=== PATIENT | male | born 1970 | race Hispanic/Latino ===

== ENCOUNTER 2022-03-31 20:39 | Emergency (ER) | payer SELFPAY ==
[2022-03-31] MEDS ORDERED: ACETAMINOPHEN 160 MG/5 ML UCUP ONE (23:57)
[2022-03-31] MEDS ORDERED: IBUPROFEN 400 MG TAB ONE (23:57)
[2022-03-31] MEDS ORDERED: ACETAMINOPHEN 500 MG TAB ONE (23:58)
--- NOTE | 2022-04-01 00:22 | ER ---
Nurse's Notes [facility] Name: Myron Dwyer Age: 51 yrs Sex: Male : 1970 Arrival Date: 03/31/2022 Time: 20:44 Bed 9 Private MD: Diagnosis: Pain in right foot Presentation: 03/31 21:38 Chief complaint: Patient states: Pt reports that he woke up Thursday morning with pain in kb3 the dorsal aspect of his right foot and in his right great toe. Coronavirus screen: Vaccine status: Patient reports receiving the 2nd dose of the covid vaccine. Client denies travel out of the [place] in the last 14 days. Ebola Screen: Patient negative for fever greater than or equal to 101.5 degrees Fahrenheit, and additional compatible Ebola Virus Disease symptoms Patient denies exposure to infectious person. Patient denies travel to an Ebola-affected area in the 21 days before illness onset. No symptoms or risks identified at this time. Initial Sepsis Screen: Does the patient meet any 2 criteria? No. Patient's initial sepsis screen is negative. Does the patient have a suspected source of infection? No. Patient's initial sepsis screen is negative. Risk Assessment: Do you want to hurt yourself or someone else?. Onset of symptoms was March 29, 2022. 21:38 Method Of Arrival: Ambulatory 3 21:38 Acuity: WERNER 3 kb3 Triage Assessment: 21:42 General: Appears in no apparent distress. Behavior is calm. Pain: Complains of pain in kb3 dorsum of right foot. Historical: - Allergies: 21:42 No Known Allergies; kb3 - Immunization history:: Adult Immunizations up to date, Client reports receiving the 2nd dose of the Covid vaccine, Last tetanus immunization: up to date. - Social history:: Smoking status: Patient denies any tobacco usage or history of. Screenin/23 00:37 Abuse screen: Denies threats or abuse. Denies injuries from another. Nutritional tw5 screening: No deficits noted. Tuberculosis screening: No symptoms or risk factors identified. Fall Risk None identified. Assessment: 00:37 General: Appears in no apparent distress. Behavior is calm, cooperative. tw5 Vital Signs: 03/31 21:38 BP 165 / 94; Pulse 80; Resp 18; Temp 98.7; Pulse Ox 99% ; Weight 111.58 kg; Height 5 kb3 ft. 5 in. (165.10 cm); Pain 9/10; 21:38 Body Mass Index 40.94 (111.58 kg, 165.10 cm) kb3 ED Course: 20:44 Patient arrived in ED. jj6 21:42 Triage completed. kb3 21:42 Arm band placed on right wrist. kb3 22:12 Marco Herzog PA is PHCP. cp 22:12 Marco Vargas MD is Attending Physician. cp 23:01 US Extremity Venous Unilateral Ltd In Process Unspecified. EDMS 23:21 XRAY Foot RIGHT 3 View In Process Unspecified. EDMS 23:46 Farideh Nails, GAMAL is Primary Nurse. [facility] 04/01 00:29 Priya Corley is Primary Nurse. tw5 00:37 Patient has correct armband on for positive identification. Bed in low position. Call tw5 light in reach. Door closed. 00:37 No provider procedures requiring assistance completed. Patient did not have IV access tw5 during this emergency room visit. Administered Medications: 03/31 23:53 Drug: Ibuprofen 800 mg Route: PO; [facility] 04/01 00:37 Follow up: Response: No adverse reaction tw5 03/31 23:53 Drug: Tylenol 1000 mg Route: PO; [facility] 04/01 00:37 Follow up: Response: No adverse reaction tw5 Medication: 00:37 VIS not applicable for this client. tw5 Outcome: 00:21 Discharge ordered by MD. cp 00:37 Discharged to home ambulatory, with crutches, with family. tw5 00:37 Condition: good 00:37 Discharge instructions given to patient, Instructed on discharge instructions, follow up and referral plans. crutch walking, Demonstrated understanding of instructions, follow-up care, medications, crutch walking, Prescriptions given X 1. 00:38 Patient left the ED. tw5 Signatures: Dispatcher [employer] EDMN Marco Herzog PA PA cp Priya Corley tw5 Praveena Perry jj6 Farideh Nails, RN RN 3 Toya Ramos RN RN 3
--- NOTE | 2022-04-01 00:22 | EDPHYS ---
Physician Documentation [facility] Name: Myron Dwyer Age: 51 yrs Sex: Male : 1970 Arrival Date: 03/31/2022 Time: 20:44 Bed 9 Private MD: ED Physician Marco Vargas HPI: 03/31 22:35 This 51 yrs old Male presents to ER via Ambulatory with complaints of POSSIBLE cp GOUT, Foot Pain. 22:35 The patient presents with pain, that is acute. cp 22:35 The complaints affect the right foot. Context: resulted from an unknown cause, the cp patient can fully bear weight, the patient is able to ambulate, with moderate difficulty. Onset: The symptoms/episode began/occurred yesterday. Associated signs and symptoms: Pertinent negatives: fever, numbness, warmth, weakness. Severity of symptoms: in the emergency department the symptoms are unchanged, despite home interventions. Historical: - Allergies: 21:42 No Known Allergies; kb3 - Immunization history:: Adult Immunizations up to date, Client reports receiving the 2nd dose of the Covid vaccine, Last tetanus immunization: up to date. - Social history:: Smoking status: Patient denies any tobacco usage or history of. ROS: 22:40 Constitutional: Negative for body aches, chills, fever, poor PO intake. cp 22:40 Cardiovascular: Negative for chest pain, edema, palpitations. cp 22:40 Respiratory: Negative for cough, shortness of breath. 22:40 Abdomen/GI: Negative for abdominal pain, nausea, vomiting, and diarrhea. 22:40 MS/extremity: Positive for pain, of the dorsum of right foot, Negative for injury or acute deformity, paresthesias, warmth. 22:40 Skin: Negative for rash. 22:40 All other systems are negative. Exam: 22:45 Constitutional: The patient appears in no acute distress, alert, awake, cp non-diaphoretic, non-toxic, well developed, well nourished, obese. 22:45 Head/Face: Normocephalic, atraumatic. cp 22:45 Cardiovascular: Rate: normal. 22:45 Respiratory: the patient does not display signs of respiratory distress, Respirations: normal, no use of accessory muscles, no retractions, labored breathing, is not present. 22:45 Back: pain, is absent, ROM is normal. 22:45 Musculoskeletal/extremity: Extremities: grossly normal except: noted in the dorsum of right foot: pain, swelling, tenderness, overlying skin intact, There is no evidence of erythema, Pulses: noted to be 2+ in the right dorsalis pedis artery, the right foot Sensation intact. Vital Signs: 21:38 BP 165 / 94; Pulse 80; Resp 18; Temp 98.7; Pulse Ox 99% ; Weight 111.58 kg; Height 5 kb3 ft. 5 in. (165.10 cm); Pain 9/10; 21:38 Body Mass Index 40.94 (111.58 kg, 165.10 cm) kb3 MDM: 23:00 Differential diagnosis: fracture, sprain, arthritis, gout, cellulitis. cp 23:14 Patient medically screened. cp 04/01 00:20 Data reviewed: vital signs, nurses notes, radiologic studies, plain films, ultrasound. 00:20 Counseling: I had a detailed discussion with the patient and/or guardian regarding: the cp historical points, exam findings, and any diagnostic results supporting the discharge/admit diagnosis, radiology results, the need for outpatient follow up, a family practitioner, to return to the emergency department if symptoms worsen or persist or if there are any questions or concerns that arise at home. Response to treatment: the patient's symptoms have mildly improved after treatment, and as a result, I will discharge patient. 03/31 22:32 Order name: XRAY Foot RIGHT 3 View cp 03/31 22:32 Order name: US Extremity Venous Unilateral Ltd cp 04/01 00:19 Order name: Bhavin Wrap; Complete Time: 00:37 cp 04/01 00:19 Order name: Crutches; Complete Time: 00:37 cp Administered Medications: 03/31 23:53 Drug: Ibuprofen 800 mg Route: PO; [facility] 04/01 00:37 Follow up: Response: No adverse reaction tw5 03/31 23:53 Drug: Tylenol 1000 mg Route: PO; [facility] 04/01 00:37 Follow up: Response: No adverse reaction tw5 Disposition Summary: 04/01/22 00:21 Discharge Ordered Location: Home cp Problem: new cp Symptoms: have improved cp Condition: Stable cp Diagnosis - Pain in right foot cp Followup: cp - With: Private Physician - When: 2 - 3 days - Reason: Recheck today's complaints Discharge Instructions: - Discharge Summary Sheet cp - Foot Pain cp Forms: - Medication Reconciliation Form cp - Thank You Letter cp - Antibiotic Education cp - Prescription Opioid Use cp Prescriptions: - Ibuprofen 800 mg Oral Tablet - take 1 tablet by ORAL route every 8 hours As needed take with food; 30 tablet; cp Refills: 0, Product Selection Permitted Signatures: Dispatcher [employer] EDMS Marco Herzog PA PA cp Hall, Erin, RN RN eh3 Toya Ramos RN RN kb3 Priya Corley tw5
[2022-04-01 03:10] VITALS: BP 165/94; TEMP 98.7; O2SAT 99
--- NOTE | 2022-04-01 11:37 | RAD REPORT ---
EXAM DESCRIPTION: RAD - Foot Right 3 View - 03/31/2022 11:19 pm CLINICAL HISTORY: The patient is 51 years old and is Male; PAIN TECHNIQUE: Frontal, lateral and oblique views of the right foot. COMPARISON: No relevant prior studies available. FINDINGS: BONES/JOINTS: Spurring along the inferior aspect of the calcaneus and calcaneal body is noted. The bone mineralization and contour is otherwise unremarkable. No acute fracture. No dislo cation. SOFT TISSUES: Soft tissue swelling of the dorsum of the midfoot is present. No radiopaque forei gn body. IMPRESSION: Soft tissue swelling of the dorsum of the midfoot is present. No underlying acute bony abnormality. Electronically signed by: Ira Cortez MD 03/31/2022 11:37 PM CDT Due to temporary technical issues with the PACS/Fluency reporting system, reports are being signed by the in house radiologists without review as a courtesy to insure prompt reporting. The interpreting radiologist is fully responsible for the content of the report
--- NOTE | 2022-04-01 12:38 | RAD REPORT ---
EXAM DESCRIPTION: US - Extremity Venous Uni Ltd - 03/31/2022 11:49 pm CLINICAL HISTORY: The patient is 51 years old and is Male; PAIN Extremity Venous Uni Ltd TECHNIQUE: Real-time duplex ultrasound scan of the right lower extremity veins integrating B-mode tw o-dimensional vascular structure, Doppler spectral analysis, color flow Doppler imaging and compressi on. COMPARISON: No relevant prior studies available. FINDINGS: DEEP VEINS: Unremarkable. No DVT in the visualized common femoral, femoral, proximal d eep femoral or popliteal veins. The veins demonstrate normal color flow, are normally compressible, with normal phasic flow and/or augmentation response. SUPERFICIAL VEINS: Unremarkable. No thrombus in the visualized great saphenous vein. SOFT TISSUES: No acute findings. No popliteal cyst. IMPRESSION: Normal right lower extremity duplex venous ultrasound. Electronically signed by: Ira Cortez MD 03/31/2022 11:35 PM CDT Due to temporary technical issues with the PACS/Fluency reporting system, reports are being signed by the in house radiologists without review as a courtesy to insure prompt reporting. The interpreting radiologist is fully responsible for the content of the report
== END 2022-04-01 00:38 | disposition home or self-care (01) ==
LOC: ER 20:39
DX: M79.671 Pain in right foot (principal)
CPT/HCPCS: 93971; 99284

== ENCOUNTER 2022-07-20 15:13 | Emergency (ER) | payer SELFPAY ==
--- OUTSIDE RECORDS SUMMARY | 2022-07-20 15:17 | XMS REPORT | Continuity of Care Document ---
:1970 Author Organization [facility] t Address [address] [place] [address] [address]. Pratt [address] [place] [address] Care Team Providers Name Role Phone Marina Atwood Primary Care Physician [phone] Problems This patient has no known problems. Allergies, Adverse Reactions, Alerts This patient has no known allergies or adverse reactions. Medications Ordered Filled Start Stop Current Ordering Indication Dosage Frequency Signature Comments Components Source Medication Medication Date Date Medication? Clinician (SIG) Name Name TAKE 2021-08 No 10 TABLET 1-08 DAILY. 00:00: 00 Dose 2021-0 No Unknown 9-30 00:00: 00 Dose 2021-0 No Unknown 9-30 00:00: 00 Dose 2021-0 No Unknown 9-30 00:00: 00 TAKE 2021-0 No 800 TABLET 3 7-07 TIMES DAILY 00:00: WITH FOOD 00 NEEDED. TAKE 1 2021-0 No TABLET 3 7-07 TIMES DAILY 00:00: WITH FOOD 00 NEEDED. TAKE 1 2021-0 No TABLET 3 7-07 TIMES DAILY 00:00: WITH FOOD 00 NEEDED. TAKE 1 2021-0 No TABLET 3 7-07 TIMES DAILY 00:00: WITH FOOD 00 NEEDED. Ciprodex 2017- No 1% 0.3 %-0.1 % 1-20 ear 00:00: drops,suspe 00 nsion Ciprodex 2017- No 1% 0.3 %-0.1 % 1-20 ear 00:00: drops,suspe 00 nsion Ciprodex 2017- No 1% 0.3 %-0.1 % 1-20 ear 00:00: drops,suspe 00 nsion Ciprodex 2017- No 1% 0.3 %-0.1 % 1-20 ear 00:00: drops,suspe 00 nsion metronidazo 2018-1 No 1mg le 500 mg 1-14 tablet 00:00: 00 pantoprazol 2018-1 No 1mg e 40 mg 1-14 tablet,charlette 00:00: yed release 00 clarithromy 2018-1 No 1mg luis 500 mg 1-14 tablet 00:00: 00 Vitamin D2 2018-1 No 1unit 50,000 unit 1-14 capsule 00:00: 00 metronidazo 2018-1 No 1mg le 500 mg 1-14 tablet 00:00: 00 pantoprazol 2018-1 No 1mg e 40 mg 1-14 tablet,charlette 00:00: yed release 00 clarithromy 2018-1 No 1mg luis 500 mg 1-14 tablet 00:00: 00 Vitamin D2 2018-1 No 1unit 50,000 unit 1-14 capsule 00:00: 00 metronidazo 2018-1 No 1mg le 500 mg 1-14 tablet 00:00: 00 pantoprazol 2018-1 No 1mg e 40 mg 1-14 tablet,charlette 00:00: yed release 00 clarithromy 2018-1 No 1mg luis 500 mg 1-14 tablet 00:00: 00 Vitamin D2 2018-1 No 1unit 50,000 unit 1-14 capsule 00:00: 00 metronidazo 2018-1 No 1mg le 500 mg 1-14 tablet 00:00: 00 pantoprazol 2018-1 No 1mg e 40 mg 1-14 tablet,charlette 00:00: yed release 00 clarithromy 2018-1 No 1mg luis 500 mg 1-14 tablet 00:00: 00 Vitamin D2 2018-1 No 1unit 50,000 unit 1-14 capsule 00:00: 00 terbinafine 2015-0 No 1% HCl 1 % 3-12 topical 00:00: cream amoxicillin 2015-0 No 1mg 500 mg 3-12 tablet 00:00: 00 terbinafine 2015-0 No 1% HCl 1 % 3-12 topical 00:00: cream amoxicillin 2015-0 No 1mg 500 mg 3-12 tablet 00:00: 00 terbinafine 2015-0 No 1% HCl 1 % 3-12 topical 00:00: cream amoxicillin 2014-0 No 1mg 500 mg 3-12 tablet 00:00: 00 terbinafine 2015-0 No 1% HCl 1 % 12 topical 00:00: cream 00 amoxicillin 2015-0 No 1mg 500 mg -12 tablet 00:00: 00 Vital Signs Vital Name Observation Time Observation Value Comments Source BP Systolic 2022-06-17 17:02:00 126 mm[Hg] BP Diastolic 2022-06-17 17:02:00 81 mm[Hg] Weight Measured 2022-06-17 17:02:00 237.80 pounds Height Measured 2022-06-17 17:02:00 64.50 inches Body Temperature 2022-06-17 17:02:00 97.50 degrees Heart Rate 2022-06-17 17:02:00 64.00 /min Respiratory Rate 2022-06-17 17:02:00 BP Systolic 2022-05-16 16:24:00 136 mm[Hg] BP Diastolic 2022-05-16 16:24:00 83 mm[Hg] Weight Measured 2022-05-16 16:24:00 244.20 pounds Height Measured 2022-05-16 16:24:00 64.50 inches Body Temperature 2022-05-16 16:24:00 98.30 degrees Heart Rate 2022-05-16 16:24:00 62.00 /min Respiratory Rate 2022-05-16 16:24:00 18.00 /min BP Systolic 2022-05-10 12:01:00 158 mm[Hg] BP Diastolic 2022-05-10 12:01:00 84 mm[Hg] Weight Measured 2022-05-10 12:01:00 244.00 pounds Height Measured 2022-05-10 12:01:00 64.50 inches Body Temperature 2022-05-10 12:01:00 98.30 degrees Heart Rate 2022-05-10 12:01:00 73.00 /min Respiratory Rate 2022-05-10 12:01:00 BP Systolic 2022-02-13 16:33:00 138 mm[Hg] BP Diastolic 2022-02-13 16:33:00 89 mm[Hg] Weight Measured 2022-02-13 16:33:00 243.00 pounds Height Measured 2022-02-13 16:33:00 64.50 inches Body Temperature 2022-02-13 16:33:00 98.30 degrees Heart Rate 2022-02-13 16:33:00 71.00 /min Respiratory Rate 2022-02-13 16:33:00 25.00 /min BP Systolic 2018-07-06 13:58:00 136 mm[Hg] BP Diastolic 2018-07-06 13:58:00 84 mm[Hg] Weight Measured 2018-07-06 13:58:00 239.20 pounds Height Measured 2018-07-06 13:58:00 64.50 inches Body Temperature 2018-07-06 13:58:00 98.30 degrees Heart Rate 2018-07-06 13:58:00 66.00 /min Respiratory Rate 2018-07-06 13:58:00 16.00 /min BP Systolic 2018-06-22 08:37:00 127 mm[Hg] BP Diastolic 2018-06-22 08:37:00 70 mm[Hg] Weight Measured 2018-06-22 08:37:00 236.20 pounds Height Measured 2018-06-22 08:37:00 64.50 inches Body Temperature 2018-06-22 08:37:00 98.00 degrees Heart Rate 2018-06-22 08:37:00 66.00 /min Respiratory Rate 2018-06-22 08:37:00 18.00 /min BP Systolic 2014-10-19 12:32:00 BP Diastolic 2014-10-19 12:32:00 Weight Measured 2014-10-19 12:32:00 Height Measured 2014-10-19 12:32:00 Body Temperature 2014-10-19 12:32:00 Heart Rate 2014-10-19 12:32:00 Respiratory Rate 2014-10-19 12:32:00 BP Systolic 2014-10-19 10:56:00 BP Diastolic 2014-10-19 10:56:00 Weight Measured 2014-10-19 10:56:00 Height Measured 2014-10-19 10:56:00 Body Temperature 2014-10-19 10:56:00 Heart Rate 2014-10-19 10:56:00 Respiratory Rate 2014-10-19 10:56:00 BP Systolic 2014-10-19 10:45:00 132 mm[Hg] BP Diastolic 2014-10-19 10:45:00 85 mm[Hg] Weight Measured 2014-10-19 10:45:00 223.20 pounds Height Measured 2014-10-19 10:45:00 64.50 inches Body Temperature 2014-10-19 10:45:00 98.00 degrees Heart Rate 2014-10-19 10:45:00 65.00 /min Respiratory Rate 2014-10-19 10:45:00 12.00 /min BP Systolic 2014-10-19 10:32:00 132 mm[Hg] BP Diastolic 2014-10-19 10:32:00 85 mm[Hg] Weight Measured 2014-10-19 10:32:00 223.20 pounds Height Measured 2014-10-19 10:32:00 64.50 inches Body Temperature 2014-10-19 10:32:00 98.00 degrees Heart Rate 2014-10-19 10:32:00 65.00 /min Respiratory Rate 2014-10-19 10:32:00 12.00 /min Procedures This patient has no known procedures. Plan of Care Planned Activity Planned Date Details Comments Source Goal Plan of Care Note [code = 15028-1] Goal Plan of Care Note [code = 97672-4] Goal Plan of Care Note [code = 84404-1] Goal Plan of Care Note [code = 37126-5] Goal Plan of Care Note [code = 89160-2] Goal Plan of Care Note [code = 08934-5] Goal Plan of Care Note [code = 92633-3] Goal Plan of Care Note [code = 76644-8] Goal Plan of Care Note [code = 48539-9] Goal Plan of Care Note [code = 46843-4] Goal Plan of Care Note [code = 54151-7] Goal Plan of Care Note [code = 11823-8] Goal Plan of Care Note [code = 05571-3] Goal Plan of Care Note [code = 55359-6] Goal Plan of Care Note [code = 26499-8] Goal Plan of Care Note [code = 06415-9] Goal Plan of Care Note [code = 25610-5] Goal Plan of Care Note [code = 51606-1] Goal Plan of Care Note [code = 22844-5] Goal Plan of Care Note [code = 53833-0] Goal Plan of Care Note [code = 03576-8] Goal Plan of Care Note [code = 10513-6] Goal Plan of Care Note [code = 01708-8] Goal Plan of Care Note [code = 87099-7] Goal Plan of Care Note [code = 88371-9] Goal Plan of Care Note [code = 24386-1] Goal Plan of Care Note [code = 88099-4] Goal Plan of Care Note [code = 44702-6] Goal Plan of Care Note [code = 95863-0] Goal Plan of Care Note [code = 97415-4] Goal Plan of Care Note [code = 58797-7] Goal Plan of Care Note [code = 55733-5] Goal Plan of Care Note [code = 44049-0] Goal Plan of Care Note [code = 81790-0] Goal Plan of Care Note [code = 71116-4] Goal Plan of Care Note [code = 47038-1] Goal Plan of Care Note [code = 99995-1] Goal Plan of Care Note [code = 13613-7] Goal Plan of Care Note [code = 17886-9] Goal Plan of Care Note [code = 46584-1] Goal Plan of Care Note [code = 22951-2] Goal Plan of Care Note [code = 36889-4] Goal Plan of Care Note [code = 96311-6] Goal Plan of Care Note [code = 44128-3] Goal Plan of Care Note [code = 59932-8] Goal Plan of Care Note [code = 69521-8] Goal Plan of Care Note [code = 50241-8] Goal Plan of Care Note [code = 54979-8] Goal Plan of Care Note [code = 34232-3] Goal Plan of Care Note [code = 47997-4] Goal Plan of Care Note [code = 95016-5] Goal Plan of Care Note [code = 66273-5] Goal Plan of Care Note [code = 07287-3] Goal Plan of Care Note [code = 72902-3] Goal Plan of Care Note [code = 69933-6] Goal Plan of Care Note [code = 69854-9] Goal Plan of Care Note [code = 35419-7] Goal Plan of Care Note [code = 74768-6] Goal Plan of Care Note [code = 84020-5] Encounters Start End Encounter Admission Attending Care Care Encounter Source Date/Time Date/Time Type Type Clinicians Facility Department ID 2022-06-19 2022-06-19 Outpatient [facility] 15:01:56 15:01:56 1110 F Singh 2022-06-17 2022-06-17 Outpatient [facility] 16:59:28 16:59:28 1108 F Singh 2022-06-17 2022-06-17 Outpatient [id number] 00:00:00 00:00:00 Visit q193-01a8 230-47a3-8 -3pc1-8g5 ea7-3h9712 [id number] a4a70c 2022-05-16 2022-05-16 Outpatient [facility] 16:10:30 16:10:30 1007 F Singh 2022-05-16 2022-05-16 Outpatient [id number]- [id number] 00:00:00 00:00:00 Visit ccd2-4556 cd2-4556-9 -985a-e7f [id number] 2022-05-10 2022-05-10 Outpatient [facility] 11:48:02 11:48:02 1001 F Singh 2022-05-10 2022-05-10 Outpatient [id number]- [id number] 00:00:00 00:00:00 Visit 6922-4dbc 922-4dbc-9 -937b-735 37b-735b06 [id number] e51fcd 2022-02-13 2022-02-13 Outpatient [id number]-[id number] 00:00:00 00:00:00 Visit 19g9-7m84 2o6-7v94-g -f14x-32z 02b-91a080 [id number] 182afe Results Test Description Test Time Test Comments Results Result Comments Source SARS-CoV-2 (COVID-19) by RT-PCR (HIGH RISK) 2020-08-01 00:00 :00 Test Item Value Reference Range Interpretation Comme nts SARS-CoV-2 INTERPRETATION (test code = 45477) NEGATIVE SOURCE (test code = 07851) NOT SPECIFIED SARS-CoV-2 (COVID-19) by RT-PCR (HIGH RISK)2020-08-01 00:00:00 Test Item Value Reference Range Interpretation Comments SARS-CoV-2 INTERPRETATION (test NEGATIVE code = 27022) SOURCE (test code = 93126) NOT SPECIFIED SARS-CoV-2 (COVID-19) by RT-PCR (HIGH RISK)2020-08-01 00:00:00 Test Item Value Reference Range Interpretation Comments SARS-CoV-2 INTERPRETATION (test NEGATIVE code = 00823) SOURCE (test code = 14464) NOT SPECIFIED SARS-CoV-2 (COVID-19) by RT-PCR (HIGH RISK)2020-08-01 00:00:00 Test Item Value Reference Range Interpretation Comments SARS-CoV-2 INTERPRETATION (test NEGATIVE code = 30933) SOURCE (test code = 44746) NOT SPECIFIED SARS-CoV-2 (COVID-19) by RT-PCR (HIGH RISK)2020-08-01 00:00:00 Test Item Value Reference Range Interpretation Comments SARS-CoV-2 INTERPRETATION (test NEGATIVE code = 27977) SOURCE (test code = 87909) NOT SPECIFIED SARS-CoV-2 (COVID-19) by RT-PCR (HIGH RISK)2020-08-01 00:00:00 Test Item Value Reference Range Interpretation Comments SARS-CoV-2 INTERPRETATION (test NEGATIVE code = 01195) SOURCE (test code = 03988) NOT SPECIFIED SARS-CoV-2 (COVID-19) by RT-PCR (HIGH RISK)2020-08-01 00:00:00 Test Item Value Reference Range Interpretation Comments SARS-CoV-2 INTERPRETATION (test NEGATIVE code = 70992) SOURCE (test code = 46755) NOT SPECIFIED LIPID [id number] 00:00:00 Test Item Value Reference Range Interpretation Comments CHOLESTEROL (test code = 2210) 204 MG/DL TRIGLYCERIDES (test code = 2232) 370 MG/DL HDL CHOLESTEROL (test code = 2220) 36 MG/DL CALC LDL CHOL (test code = 2237) 94 MG/DL RISK RATIO LDL/HDL (test code = 2.61 RATIO 2238) CBC W/AUTO [id number] 00:00:00 Test Item Value Reference Range Interpretation Comments WBC (test code = 1001) 6.2 K/UL RBC (test code = 1002) 5.31 M/UL HEMOGLOBIN (test code = 1003) 14.7 G/DL HEMATOCRIT (test code = 1004) 41.6 % MCV (test code = 1005) 78.3 fL MCH (test code = 1006) 27.7 PG MCHC (test code = 1007) 35.3 G/DL RDW (test code = 1038) 13.2 % NEUTROPHILS (test code = 1008) 69.0 % LYMPHOCYTES (test code = 1010) 23.1 % MONOCYTES (test code = 1011) 5.8 % EOSINOPHILS (test code = 1012) 1.8 % BASOPHILS (test code = 1013) 0.3 % PLATELET COUNT (test code = 1015) 119 K/UL CBC W/AUTO [id number] 00:00:00 Test Item Value Reference Range Interpretation Comments WBC (test code = 1001) 6.2 K/UL RBC (test code = 1002) 5.31 M/UL HEMOGLOBIN (test code = 1003) 14.7 G/DL HEMATOCRIT (test code = 1004) 41.6 % MCV (test code = 1005) 78.3 fL MCH (test code = 1006) 27.7 PG MCHC (test code = 1007) 35.3 G/DL RDW (test code = 1038) 13.2 % NEUTROPHILS (test code = 1008) 69.0 % LYMPHOCYTES (test code = 1010) 23.1 % MONOCYTES (test code = 1011) 5.8 % EOSINOPHILS (test code = 1012) 1.8 % BASOPHILS (test code = 1013) 0.3 % PLATELET COUNT (test code = 1015) 119 K/UL CBC W/AUTO [id number] 00:00:00 Test Item Value Reference Range Interpretation Comments WBC (test code = 1001) 6.2 K/UL RBC (test code = 1002) 5.31 M/UL HEMOGLOBIN (test code = 1003) 14.7 G/DL HEMATOCRIT (test code = 1004) 41.6 % MCV (test code = 1005) 78.3 fL MCH (test code = 1006) 27.7 PG MCHC (test code = 1007) 35.3 G/DL RDW (test code = 1038) 13.2 % NEUTROPHILS (test code = 1008) 69.0 % LYMPHOCYTES (test code = 1010) 23.1 % MONOCYTES (test code = 1011) 5.8 % EOSINOPHILS (test code = 1012) 1.8 % BASOPHILS (test code = 1013) 0.3 % PLATELET COUNT (test code = 1015) 119 K/UL HEMOGLOBIN [id number] 00:00:00 Test Item Value Reference Range Interpretation Comments HEMOGLOBIN A1c (test code = 92340) 5.6 % HEMOGLOBIN [id number] 00:00:00 Test Item Value Reference Range Interpretation Comments HEMOGLOBIN A1c (test code = 65851) 5.6 % HEMOGLOBIN [id number] 00:00:00 Test Item Value Reference Range Interpretation Comments HEMOGLOBIN A1c (test code = 02741) 5.6 % HEMOGLOBIN [id number] 00:00:00 Test Item Value Reference Range Interpretation Comments HEMOGLOBIN A1c (test code = 60849) 5.6 % [id number] 00:00:00 Test Item Value Reference Range Interpretation Comments TSH, THIRD GENERATION (test code 2.290 UIU/ML = 2821) [id number] 00:00:00 Test Item Value Reference Range Interpretation Comments TSH, THIRD GENERATION (test code 2.290 UIU/ML = 2821) [id number] 00:00:00 Test Item Value Reference Range Interpretation Comments TSH, THIRD GENERATION (test code 2.290 UIU/ML = 2821) URIC [id number] 00:00:00 Test Item Value Reference Range Interpretation Comments URIC ACID (test code = 2233) 7.7 MG/DL URIC [id number] 00:00:00 Test Item Value Reference Range Interpretation Comments URIC ACID (test code = 2233) 7.7 MG/DL RHEUMATOID FACTOR, [id number] 00:00:00 Test Item Value Reference Range Interpretation Comments RHEUMATOID FACTOR, QUANT (test code <10 IU/ML = 3502) RHEUMATOID FACTOR, [id number] 00:00:00 Test Item Value Reference Range Interpretation Comments RHEUMATOID FACTOR, QUANT (test code <10 IU/ML = 3502) RHEUMATOID FACTOR, [id number] 00:00:00 Test Item Value Reference Range Interpretation Comments RHEUMATOID FACTOR, QUANT (test code <10 IU/ML = 3502) HEMOGLOBIN [id number] 00:00:00 Test Item Value Reference Range Interpretation Comments HEMOGLOBIN A1c (test code = 43793) 5.6 % VITAMIN D, 25 [id number] 00:00:00 Test Item Value Reference Range Interpretation Comments VITAMIN D, 25 OH (test code = 4958) 21 NG/ML VITAMIN D, 25 [id number] 00:00:00 Test Item Value Reference Range Interpretation Comments VITAMIN D, 25 OH (test code = 4958) 21 NG/ML [id number] 00:00:00 Test Item Value Reference Range Interpretation Comments TSH, THIRD GENERATION (test code 2.290 UIU/ML = 2821) [id number] 00:00:00 Test Item Value Reference Range Interpretation Comments TSH, THIRD GENERATION (test code 2.290 UIU/ML = 2821) URIC [id number] 00:00:00 Test Item Value Reference Range Interpretation Comments URIC ACID (test code = 2233) 7.7 MG/DL COMPREHENSIVE METABOLIC [id number] 00:00:00 Test Item Value Reference Range Interpretation Comments GLUCOSE (test code = 2217) 86 MG/DL BUN (test code = 2208) 15 MG/DL CREATININE (test code = 2214) 0.83 MG/DL eGFR AMER. (test code 121 ML/MIN/1.73 = 91730) eGFR NON- AMER. (test 105 ML/MIN/1.73 code = 57275) CALC BUN/CREAT (test code = 18 RATIO 2235) SODIUM (test code = 2231) 140 MEQ/L POTASSIUM (test code = 2228) 4.6 MEQ/L CHLORIDE (test code = 2215) 101 MEQ/L CARBON DIOXIDE (test code = 28 MEQ/L 2205) CALCIUM (test code = 2209) 9.9 MG/DL PROTEIN, TOTAL (test code = 7.4 G/DL 2228) ALBUMIN (test code = 2201) 4.4 G/DL CALC GLOBULIN (test code = 3.0 G/DL 2240) CALC A/G RATIO (test code = 1.5 RATIO 2234) BILIRUBIN, TOTAL (test code = 0.3 MG/DL 2206) ALKALINE PHOSPHATASE (test 93 U/L code = 2204) AST (test code = 2218) 19 U/L ALT (test code = 2219) 24 U/L RHEUMATOID FACTOR, [id number] 00:00:00 Test Item Value Reference Range Interpretation Comments RHEUMATOID FACTOR, QUANT (test code <10 IU/ML = 3502) COMPREHENSIVE METABOLIC [id number] 00:00:00 Test Item Value Reference Range Interpretation Comments GLUCOSE (test code = 2217) 86 MG/DL BUN (test code = 2208) 15 MG/DL CREATININE (test code = 2214) 0.83 MG/DL eGFR AMER. (test code 121 ML/MIN/1.73 = 66128) eGFR NON- AMER. (test 105 ML/MIN/1.73 code = 98889) CALC BUN/CREAT (test code = 18 RATIO 2235) SODIUM (test code = 2231) 140 MEQ/L POTASSIUM (test code = 2228) 4.6 MEQ/L CHLORIDE (test code = 2215) 101 MEQ/L CARBON DIOXIDE (test code = 28 MEQ/L 220) CALCIUM (test code = 2209) 9.9 MG/DL PROTEIN, TOTAL (test code = 7.4 G/DL 2228) ALBUMIN (test code = 2201) 4.4 G/DL CALC GLOBULIN (test code = 3.0 G/DL 2240) CALC A/G RATIO (test code = 1.5 RATIO 2234) BILIRUBIN, TOTAL (test code = 0.3 MG/DL 2206) ALKALINE PHOSPHATASE (test 93 U/L code = 2204) AST (test code = 2218) 19 U/L ALT (test code = 2219) 24 U/L LIPID [id number] 00:00:00 Test Item Value Reference Range Interpretation Comments CHOLESTEROL (test code = 2210) 204 MG/DL TRIGLYCERIDES (test code = 2232) 370 MG/DL HDL CHOLESTEROL (test code = 2220) 36 MG/DL CALC LDL CHOL (test code = 2237) 94 MG/DL RISK RATIO LDL/HDL (test code = 2.61 RATIO 2238) LIPID [id number] 00:00:00 Test Item Value Reference Range Interpretation Comments CHOLESTEROL (test code = 2210) 204 MG/DL TRIGLYCERIDES (test code = 2232) 370 MG/DL HDL CHOLESTEROL (test code = 2220) 36 MG/DL CALC LDL CHOL (test code = 2237) 94 MG/DL RISK RATIO LDL/HDL (test code = 2.61 RATIO 2238) CBC W/AUTO [id number] 00:00:00 Test Item Value Reference Range Interpretation Comments WBC (test code = 1001) 6.2 K/UL RBC (test code = 1002) 5.31 M/UL HEMOGLOBIN (test code = 1003) 14.7 G/DL HEMATOCRIT (test code = 1004) 41.6 % MCV (test code = 1005) 78.3 fL MCH (test code = 1006) 27.7 PG MCHC (test code = 1007) 35.3 G/DL RDW (test code = 1038) 13.2 % NEUTROPHILS (test code = 1008) 69.0 % LYMPHOCYTES (test code = 1010) 23.1 % MONOCYTES (test code = 1011) 5.8 % EOSINOPHILS (test code = 1012) 1.8 % BASOPHILS (test code = 1013) 0.3 % PLATELET COUNT (test code = 1015) 119 K/UL CBC W/AUTO [id number] 00:00:00 Test Item Value Reference Range Interpretation Comments WBC (test code = 1001) 6.2 K/UL RBC (test code = 1002) 5.31 M/UL HEMOGLOBIN (test code = 1003) 14.7 G/DL HEMATOCRIT (test code = 1004) 41.6 % MCV (test code = 1005) 78.3 fL MCH (test code = 1006) 27.7 PG MCHC (test code = 1007) 35.3 G/DL RDW (test code = 1038) 13.2 % NEUTROPHILS (test code = 1008) 69.0 % LYMPHOCYTES (test code = 1010) 23.1 % MONOCYTES (test code = 1011) 5.8 % EOSINOPHILS (test code = 1012) 1.8 % BASOPHILS (test code = 1013) 0.3 % PLATELET COUNT (test code = 1015) 119 K/UL CBC W/AUTO [id number] 00:00:00 Test Item Value Reference Range Interpretation Comments WBC (test code = 1001) 6.2 K/UL RBC (test code = 1002) 5.31 M/UL HEMOGLOBIN (test code = 1003) 14.7 G/DL HEMATOCRIT (test code = 1004) 41.6 % MCV (test code = 1005) 78.3 fL MCH (test code = 1006) 27.7 PG MCHC (test code = 1007) 35.3 G/DL RDW (test code = 1038) 13.2 % NEUTROPHILS (test code = 1008) 69.0 % LYMPHOCYTES (test code = 1010) 23.1 % MONOCYTES (test code = 1011) 5.8 % EOSINOPHILS (test code = 1012) 1.8 % BASOPHILS (test code = 1013) 0.3 % PLATELET COUNT (test code = 1015) 119 K/UL HEMOGLOBIN [id number] 00:00:00 Test Item Value Reference Range Interpretation Comments HEMOGLOBIN A1c (test code = 93835) 5.6 % HEMOGLOBIN [id number] 00:00:00 Test Item Value Reference Range Interpretation Comments HEMOGLOBIN A1c (test code = 86044) 5.6 % HEMOGLOBIN [id number] 00:00:00 Test Item Value Reference Range Interpretation Comments HEMOGLOBIN A1c (test code = 95384) 5.6 % [id number] 00:00:00 Test Item Value Reference Range Interpretation Comments TSH, THIRD GENERATION (test code 2.290 UIU/ML = 2821) RHEUMATOID FACTOR, [id number] 00:00:00 Test Item Value Reference Range Interpretation Comments RHEUMATOID FACTOR, QUANT (test code <10 IU/ML = 3502) [id number] 00:00:00 Test Item Value Reference Range Interpretation Comments TSH, THIRD GENERATION (test code 2.290 UIU/ML = 2821) [id number] 00:00:00 Test Item Value Reference Range Interpretation Comments TSH, THIRD GENERATION (test code 2.290 UIU/ML = 2821) URIC [id number] 00:00:00 Test Item Value Reference Range Interpretation Comments URIC ACID (test code = 2233) 7.7 MG/DL URIC [id number] 00:00:00 Test Item Value Reference Range Interpretation Comments URIC ACID (test code = 2233) 7.7 MG/DL RHEUMATOID FACTOR, [id number] 00:00:00 Test Item Value Reference Range Interpretation Comments RHEUMATOID FACTOR, QUANT (test code <10 IU/ML = 3502) RHEUMATOID FACTOR, [id number] 00:00:00 Test Item Value Reference Range Interpretation Comments RHEUMATOID FACTOR, QUANT (test code <10 IU/ML = 3502) RHEUMATOID FACTOR, [id number] 00:00:00 Test Item Value Reference Range Interpretation Comments RHEUMATOID FACTOR, QUANT (test code <10 IU/ML = 3502) VITAMIN D, 25 [id number] 00:00:00 Test Item Value Reference Range Interpretation Comments VITAMIN D, 25 OH (test code = 4958) 21 NG/ML VITAMIN D, 25 [id number] 00:00:00 Test Item Value Reference Range Interpretation Comments VITAMIN D, 25 OH (test code = 4958) 21 NG/ML VITAMIN D, 25 [id number] 00:00:00 Test Item Value Reference Range Interpretation Comments VITAMIN D, 25 OH (test code = 4958) 21 NG/ML COMPREHENSIVE METABOLIC [id number] 00:00:00 Test Item Value Reference Range Interpretation Comments GLUCOSE (test code = 2217) 86 MG/DL BUN (test code = 2208) 15 MG/DL CREATININE (test code = 2214) 0.83 MG/DL eGFR AMER. (test code 121 ML/MIN/1.73 = 93870) eGFR NON- AMER. (test 105 ML/MIN/1.73 code = 77613) CALC BUN/CREAT (test code = 18 RATIO 2235) SODIUM (test code = 2231) 140 MEQ/L POTASSIUM (test code = 2228) 4.6 MEQ/L CHLORIDE (test code = 2215) 101 MEQ/L CARBON DIOXIDE (test code = 28 MEQ/L 6) CALCIUM (test code = 2209) 9.9 MG/DL PROTEIN, TOTAL (test code = 7.4 G/DL 2228) ALBUMIN (test code = 2201) 4.4 G/DL CALC GLOBULIN (test code = 3.0 G/DL 2240) CALC A/G RATIO (test code = 1.5 RATIO 2234) BILIRUBIN, TOTAL (test code = 0.3 MG/DL 2206) ALKALINE PHOSPHATASE (test 93 U/L code = 2204) AST (test code = 2218) 19 U/L ALT (test code = 2219) 24 U/L COMPREHENSIVE METABOLIC [id number] 00:00:00 Test Item Value Reference Range Interpretation Comments GLUCOSE (test code = 2217) 86 MG/DL BUN (test code = 2208) 15 MG/DL CREATININE (test code = 2214) 0.83 MG/DL eGFR AMER. (test code 121 ML/MIN/1.73 = 04774) eGFR NON- AMER. (test 105 ML/MIN/1.73 code = 76991) CALC BUN/CREAT (test code = 18 RATIO 2235) SODIUM (test code = 2231) 140 MEQ/L POTASSIUM (test code = 2228) 4.6 MEQ/L CHLORIDE (test code = 2215) 101 MEQ/L CARBON DIOXIDE (test code = 28 MEQ/L 2205) CALCIUM (test code = 2209) 9.9 MG/DL PROTEIN, TOTAL (test code = 7.4 G/DL 2228) ALBUMIN (test code = 2201) 4.4 G/DL CALC GLOBULIN (test code = 3.0 G/DL 224) CALC A/G RATIO (test code = 1.5 RATIO 2234) BILIRUBIN, TOTAL (test code = 0.3 MG/DL 2206) ALKALINE PHOSPHATASE (test 93 U/L code = 2204) AST (test code = 2218) 19 U/L ALT (test code = 2219) 24 U/L LIPID [id number] 00:00:00 Test Item Value Reference Range Interpretation Comments CHOLESTEROL (test code = 2210) 204 MG/DL TRIGLYCERIDES (test code = 2232) 370 MG/DL HDL CHOLESTEROL (test code = 2220) 36 MG/DL CALC LDL CHOL (test code = 2237) 94 MG/DL RISK RATIO LDL/HDL (test code = 2.61 RATIO 2238) LIPID [id number] 00:00:00 Test Item Value Reference Range Interpretation Comments CHOLESTEROL (test code = 2210) 204 MG/DL TRIGLYCERIDES (test code = 2232) 370 MG/DL HDL CHOLESTEROL (test code = 2220) 36 MG/DL CALC LDL CHOL (test code = 2237) 94 MG/DL RISK RATIO LDL/HDL (test code = 2.61 RATIO 2238) CBC W/AUTO [id number] 00:00:00 Test Item Value Reference Range Interpretation Comments WBC (test code = 1001) 6.2 K/UL RBC (test code = 1002) 5.31 M/UL HEMOGLOBIN (test code = 1003) 14.7 G/DL HEMATOCRIT (test code = 1004) 41.6 % MCV (test code = 1005) 78.3 fL MCH (test code = 1006) 27.7 PG MCHC (test code = 1007) 35.3 G/DL RDW (test code = 1038) 13.2 % NEUTROPHILS (test code = 1008) 69.0 % LYMPHOCYTES (test code = 1010) 23.1 % MONOCYTES (test code = 1011) 5.8 % EOSINOPHILS (test code = 1012) 1.8 % BASOPHILS (test code = 1013) 0.3 % PLATELET COUNT (test code = 1015) 119 K/UL CBC W/AUTO [id number] 00:00:00 Test Item Value Reference Range Interpretation Comments WBC (test code = 1001) 6.2 K/UL RBC (test code = 1002) 5.31 M/UL HEMOGLOBIN (test code = 1003) 14.7 G/DL HEMATOCRIT (test code = 1004) 41.6 % MCV (test code = 1005) 78.3 fL MCH (test code = 1006) 27.7 PG MCHC (test code = 1007) 35.3 G/DL RDW (test code = 1038) 13.2 % NEUTROPHILS (test code = 1008) 69.0 % LYMPHOCYTES (test code = 1010) 23.1 % MONOCYTES (test code = 1011) 5.8 % EOSINOPHILS (test code = 1012) 1.8 % BASOPHILS (test code = 1013) 0.3 % PLATELET COUNT (test code = 1015) 119 K/UL CBC W/AUTO [id number] 00:00:00 Test Item Value Reference Range Interpretation Comments WBC (test code = 1001) 6.2 K/UL RBC (test code = 1002) 5.31 M/UL HEMOGLOBIN (test code = 1003) 14.7 G/DL HEMATOCRIT (test code = 1004) 41.6 % MCV (test code = 1005) 78.3 fL MCH (test code = 1006) 27.7 PG MCHC (test code = 1007) 35.3 G/DL RDW (test code = 1038) 13.2 % NEUTROPHILS (test code = 1008) 69.0 % LYMPHOCYTES (test code = 1010) 23.1 % MONOCYTES (test code = 1011) 5.8 % EOSINOPHILS (test code = 1012) 1.8 % BASOPHILS (test code = 1013) 0.3 % PLATELET COUNT (test code = 1015) 119 K/UL HEMOGLOBIN [id number] 00:00:00 Test Item Value Reference Range Interpretation Comments HEMOGLOBIN A1c (test code = 25010) 5.6 % HEMOGLOBIN [id number] 00:00:00 Test Item Value Reference Range Interpretation Comments HEMOGLOBIN A1c (test code = 60188) 5.6 % HEMOGLOBIN [id number] 00:00:00 Test Item Value Reference Range Interpretation Comments HEMOGLOBIN A1c (test code = 07723) 5.6 % [id number] 00:00:00 Test Item Value Reference Range Interpretation Comments TSH, THIRD GENERATION (test code 2.290 UIU/ML = 2821) [id number] 00:00:00 Test Item Value Reference Range Interpretation Comments TSH, THIRD GENERATION (test code 2.290 UIU/ML = 2821) [id number] 00:00:00 Test Item Value Reference Range Interpretation Comments TSH, THIRD GENERATION (test code 2.290 UIU/ML = 2821) URIC [id number] 00:00:00 Test Item Value Reference Range Interpretation Comments URIC ACID (test code = 2233) 7.7 MG/DL URIC [id number] 00:00:00 Test Item Value Reference Range Interpretation Comments URIC ACID (test code = 2233) 7.7 MG/DL RHEUMATOID FACTOR, [id number] 00:00:00 Test Item Value Reference Range Interpretation Comments RHEUMATOID FACTOR, QUANT (test code <10 IU/ML = 3502) RHEUMATOID FACTOR, [id number] 00:00:00 Test Item Value Reference Range Interpretation Comments RHEUMATOID FACTOR, QUANT (test code <10 IU/ML = 3502) RHEUMATOID FACTOR, [id number] 00:00:00 Test Item Value Reference Range Interpretation Comments RHEUMATOID FACTOR, QUANT (test code <10 IU/ML = 3502) VITAMIN D, 25 [id number] 00:00:00 Test Item Value Reference Range Interpretation Comments VITAMIN D, 25 OH (test code = 4958) 21 NG/ML VITAMIN D, 25 [id number] 00:00:00 Test Item Value Reference Range Interpretation Comments VITAMIN D, 25 OH (test code = 4958) 21 NG/ML COMPREHENSIVE METABOLIC [id number] 00:00:00 Test Item Value Reference Range Interpretation Comments GLUCOSE (test code = 2217) 86 MG/DL BUN (test code = 2208) 15 MG/DL CREATININE (test code = 2214) 0.83 MG/DL eGFR AMER. (test code 121 ML/MIN/1.73 = 77548) eGFR NON- AMER. (test 105 ML/MIN/1.73 code = 53808) CALC BUN/CREAT (test code = 18 RATIO 2235) SODIUM (test code = 2231) 140 MEQ/L POTASSIUM (test code = 2228) 4.6 MEQ/L CHLORIDE (test code = 2215) 101 MEQ/L CARBON DIOXIDE (test code = 28 MEQ/L 2205) CALCIUM (test code = 2209) 9.9 MG/DL PROTEIN, TOTAL (test code = 7.4 G/DL 2228) ALBUMIN (test code = 2201) 4.4 G/DL CALC GLOBULIN (test code = 3.0 G/DL 2239) CALC A/G RATIO (test code = 1.5 RATIO 2233) BILIRUBIN, TOTAL (test code = 0.3 MG/DL 2206) ALKALINE PHOSPHATASE (test 93 U/L code = 2204) AST (test code = 2218) 19 U/L ALT (test code = 2219) 24 U/L LIPID [id number] 00:00:00 Test Item Value Reference Range Interpretation Comments CHOLESTEROL (test code = 2210) 204 MG/DL TRIGLYCERIDES (test code = 2232) 370 MG/DL HDL CHOLESTEROL (test code = 2220) 36 MG/DL CALC LDL CHOL (test code = 2237) 94 MG/DL RISK RATIO LDL/HDL (test code = 2.61 RATIO 2238) CBC W/AUTO [id number] 00:00:00 Test Item Value Reference Range Interpretation Comments WBC (test code = 1001) 6.2 K/UL RBC (test code = 1002) 5.31 M/UL HEMOGLOBIN (test code = 1003) 14.7 G/DL HEMATOCRIT (test code = 1004) 41.6 % MCV (test code = 1005) 78.3 fL MCH (test code = 1006) 27.7 PG MCHC (test code = 1007) 35.3 G/DL RDW (test code = 1038) 13.2 % NEUTROPHILS (test code = 1008) 69.0 % LYMPHOCYTES (test code = 1010) 23.1 % MONOCYTES (test code = 1011) 5.8 % EOSINOPHILS (test code = 1012) 1.8 % BASOPHILS (test code = 1013) 0.3 % PLATELET COUNT (test code = 1015) 119 K/UL CBC W/AUTO [id number] 00:00:00 Test Item Value Reference Range Interpretation Comments WBC (test code = 1001) 6.2 K/UL RBC (test code = 1002) 5.31 M/UL HEMOGLOBIN (test code = 1003) 14.7 G/DL HEMATOCRIT (test code = 1004) 41.6 % MCV (test code = 1005) 78.3 fL MCH (test code = 1006) 27.7 PG MCHC (test code = 1007) 35.3 G/DL RDW (test code = 1038) 13.2 % NEUTROPHILS (test code = 1008) 69.0 % LYMPHOCYTES (test code = 1010) 23.1 % MONOCYTES (test code = 1011) 5.8 % EOSINOPHILS (test code = 1012) 1.8 % BASOPHILS (test code = 1013) 0.3 % PLATELET COUNT (test code = 1015) 119 K/UL COMPREHENSIVE METABOLIC [id number] 00:00:00 Test Item Value Reference Range Interpretation Comments GLUCOSE (test code = 2217) 86 MG/DL BUN (test code = 2208) 15 MG/DL CREATININE (test code = 2214) 0.83 MG/DL eGFR AMER. (test code 121 ML/MIN/1.73 = 90662) eGFR NON- AMER. (test 105 ML/MIN/1.73 code = 17218) CALC BUN/CREAT (test code = 18 RATIO 2235) SODIUM (test code = 2231) 140 MEQ/L POTASSIUM (test code = 2228) 4.6 MEQ/L CHLORIDE (test code = 2215) 101 MEQ/L CARBON DIOXIDE (test code = 28 MEQ/L 220) CALCIUM (test code = 2209) 9.9 MG/DL PROTEIN, TOTAL (test code = 7.4 G/DL 2228) ALBUMIN (test code = 2201) 4.4 G/DL CALC GLOBULIN (test code = 3.0 G/DL 2240) CALC A/G RATIO (test code = 1.5 RATIO 2234) BILIRUBIN, TOTAL (test code = 0.3 MG/DL 2206) ALKALINE PHOSPHATASE (test 93 U/L code = 2204) AST (test code = 2218) 19 U/L ALT (test code = 2219) 24 U/L COMPREHENSIVE METABOLIC [id number] 00:00:00 Test Item Value Reference Range Interpretation Comments GLUCOSE (test code = 2217) 86 MG/DL BUN (test code = 2208) 15 MG/DL CREATININE (test code = 2214) 0.83 MG/DL eGFR AMER. (test code 121 ML/MIN/1.73 = 69740) eGFR NON- AMER. (test 105 ML/MIN/1.73 code = 49332) CALC BUN/CREAT (test code = 18 RATIO 2235) SODIUM (test code = 2231) 140 MEQ/L POTASSIUM (test code = 2228) 4.6 MEQ/L CHLORIDE (test code = 2215) 101 MEQ/L CARBON DIOXIDE (test code = 28 MEQ/L 2205) CALCIUM (test code = 2209) 9.9 MG/DL PROTEIN, TOTAL (test code = 7.4 G/DL 2228) ALBUMIN (test code = 2201) 4.4 G/DL CALC GLOBULIN (test code = 3.0 G/DL 2240) CALC A/G RATIO (test code = 1.5 RATIO 2234) BILIRUBIN, TOTAL (test code = 0.3 MG/DL 2206) ALKALINE PHOSPHATASE (test 93 U/L code = 2204) AST (test code = 2218) 19 U/L ALT (test code = 2219) 24 U/L LIPID [id number] 00:00:00 Test Item Value Reference Range Interpretation Comments CHOLESTEROL (test code = 2210) 204 MG/DL TRIGLYCERIDES (test code = 2232) 370 MG/DL HDL CHOLESTEROL (test code = 2220) 36 MG/DL CALC LDL CHOL (test code = 2237) 94 MG/DL RISK RATIO LDL/HDL (test code = 2.61 RATIO 2238)
[2022-07-20] MEDS ORDERED: MORPHINE 4 MG/ML SYR ONE (16:15)
[2022-07-20] MEDS ORDERED: ONDANSETRON 4 MG/2 ML VIAL ONE (16:15)
[2022-07-20 16:26] LABS: Absolute Lymphocytes (CBC) 1.3 K/uL (0.7-4.9); Hematocrit 41.4 % (39.6-49.0); Lymphocytes % 20.1 % (15.3-44.8); MCV 81.6 fL (80-100); MPV 9.9 fL (7.6-11.3); RBC Red Blood Cell Count 5.07 M/uL (4.33-5.43)
[2022-07-20 16:27] LABS: Urine Blood Negative (Negative); Urine Glucose Negative (Negative); Urine Protein Negative (Negative)
[2022-07-20 16:34] LABS: Urine Crystals Unidentified Few /HPF (None Seen); Urine RBC <5 /HPF (None Seen)
[2022-07-20 16:44] LABS: Bilirubin Total 0.2 mg/dL (0.2-1.0); Protein, Total 7.3 g/dL (6.4-8.2)
--- NOTE | 2022-07-20 18:24 | RAD REPORT ---
EXAM DESCRIPTION: CTAbdomen Pelvis W Contrast - 07/20/2022 6:10 pm CLINICAL HISTORY: rectal pain COMPARISON: <Comparisons> TECHNIQUE: CT of the abdomen and pelvis was performed. All CT scans are performed using dose optimization technique as appropriate and may include automated exposure control or mA/KV adjustment according to patient size. FINDINGS: Lower chest: No acute abnormality. Liver: No acute abnormality or suspicious lesions. Hepatic steatosis Biliary: No biliary ductal dilatation. Stomach: No significant focal abnormality. Duodenum: No significant focal abnormality. Pancreas: No significant abnormality. Spleen: No significant abnormality. Adrenal: No suspicious lesions. Kidney/ureter: No hydronephrosis. No renal calculi. For upper pole renal cyst. Retroperitoneum: No retroperitoneal adenopathy. Vascular: No aneurysm. Bowel: No significant focal abnormality. Normal appendix. Peritoneum: No ascites or free air. Small fat containing inguinal hernias. Bladder: Grossly unremarkable. Reproductive: No adnexal masses. Bones: No acute fracture. Mild disc height loss at L5-S1. Other: n/a IMPRESSION: No acute intra-abdominal or pelvic finding. Normal appendix.
--- NOTE | 2022-07-20 19:14 | EDPHYS ---
Physician Documentation [facility] Name: Myron Dwyer Age: 51 yrs Sex: Male : 1970 Arrival Date: 07/20/2022 Time: 15:15 Bed 20 Private MD: ED Physician Trey Rivera HPI: 07/20 15:50 This 51 yrs old Male presents to ER via Ambulatory with complaints of Rectal cp Pain, Hemorrhoids. 15:50 The patient presents to the emergency department with pain in the rectal area, that is cp moderate. Onset: The symptoms/episode began/occurred 2 week(s) ago, and became worse 1 week(s) ago. 15:50 Context: the patient has no known special context relating to the rectal area cp complaint(s), possibly due to hemorrhoids. Modifying factors: The symptoms are aggravated by bowel movement, sitting position. Associate signs and symptoms: Pertinent positives: diarrhea, Pertinent negatives: abdominal pain, constipation, dysuria, fever, lower GI bleeding, vomiting. Historical: - Allergies: 15:33 No Known Allergies; kb3 - Home Meds: 15:33 Unable to obtain [Active]; kb3 - PMHx: 15:33 High uric acid; Hypertensive disorder; Hypercholesterolemia; kb3 - PSHx: 15:33 None; kb3 - Immunization history:: Adult Immunizations up to date, Client reports receiving the 2nd dose of the Covid vaccine, Last tetanus immunization: unknown. - Social history:: Smoking status: Patient denies any tobacco usage or history of. ROS: 15:55 Constitutional: Negative for body aches, chills, fever, poor PO intake. cp 15:55 Abdomen/GI: Positive for rectal pain, Negative for abdominal pain, nausea, vomiting, cp and diarrhea, anorexia, black/tarry stool, rectal bleeding. 15:55 Eyes: Negative for injury, pain, redness, and discharge. cp 15:55 ENT: Negative for drainage from ear(s), ear pain, sore throat, difficulty swallowing, difficulty handling secretions. 15:55 Cardiovascular: Negative for chest pain, edema, palpitations. 15:55 Respiratory: Negative for cough, shortness of breath, wheezing. 15:55 Back: Negative for pain at rest, pain with movement. 15:55 : Negative for urinary symptoms, testicular pain 15:55 Neuro: Negative for altered mental status, dizziness, headache, weakness. cp 15:55 All other systems are negative. Exam: 16:00 Constitutional: The patient appears in no acute distress, alert, awake, cp non-diaphoretic, non-toxic, well developed, well nourished, obese. 16:00 Head/Face: Normocephalic, atraumatic. cp 16:00 Eyes: Periorbital structures: appear normal, Conjunctiva: normal, no exudate, no injection, Sclera: no appreciated abnormality, Lids and lashes: appear normal, bilaterally. 16:00 ENT: External ear(s): are unremarkable, Nose: is normal, Mouth: Lips: moist, Oral mucosa: moist, Posterior pharynx: Airway: no evidence of obstruction, patent. 16:00 Chest/axilla: Inspection: normal. 16:00 Cardiovascular: Rate: normal, Rhythm: regular. 16:00 Respiratory: the patient does not display signs of respiratory distress, Respirations: normal, no use of accessory muscles, no retractions, labored breathing, is not present, Breath sounds: are clear throughout, no decreased breath sounds, no stridor, no wheezing. 16:00 Abdomen/GI: Inspection: abdomen appears normal, Bowel sounds: active, all quadrants, cp Palpation: abdomen is soft and non-tender, in all quadrants. 16:00 Back: pain, is absent, ROM is normal. 16:00 : Rectal exam: Rectal tone: normal, Stool: brown, Guaiac testing: results were negative for occult blood, hemorrhoid(s), are not appreciated, fissure, is not appreciated, marked pain on exam with tenderness at 9 o'clock position. no masses and/or abscess palpated. Vital Signs: 15:30 BP 149 / 93; Pulse 71; Resp 18; Pulse Ox 99% on R/A; eh3 15:31 BP 149 / 93; Pulse 71; Resp 18; Temp 98; Pulse Ox 99% ; Weight 105.69 kg; Height 5 ft. kb3 5 in. (165.10 cm); Pain 4/10; 16:30 BP 136 / 81; Pulse 55; Resp 18; Pulse Ox 97% on R/A; eh3 17:30 BP 119 / 78; Pulse 60; Resp 18; Pulse Ox 96% on R/A; eh3 18:30 BP 132 / 89; Pulse 59; Resp 18; Pulse Ox 97% on R/A; eh3 15:31 Body Mass Index 38.77 (105.69 kg, 165.10 cm) kb3 MDM: 15:25 Patient medically screened. cp 16:00 Differential diagnosis: hemorrhoids, fissure, abscess, pilonidal cyst, rectal abscess, cp cellulitis. 19:14 Data reviewed: vital signs, nurses notes, lab test result(s), radiologic studies, CT cp scan. 19:14 Counseling: I had a detailed discussion with the patient and/or guardian regarding: the cp historical points, exam findings, and any diagnostic results supporting the discharge/admit diagnosis, lab results, radiology results, the need for outpatient follow up, a science technician, to return to the emergency department if symptoms worsen or persist or if there are any questions or concerns that arise at home. Response to treatment: Pain improved. Labs and CT abdomen/pelvis reviewed and negative for rectal abscess. With pain, will treat with oral antibiotics and recommend GI f/u. Return to ED worsening pain, symptoms. 07/20 15:44 Order name: CBC with Diff; Complete Time: 16:32 cp 07/20 16:32 Interpretation: Normal except: PLT 125. cp 07/20 15:44 Order name: CMP; Complete Time: 16:50 cp 07/20 15:44 Order name: Lipase; Complete Time: 16:50 cp 07/20 15:44 Order name: Urine Microscopic Only; Complete Time: 16:42 cp 07/20 15:44 Order name: CT Abd/Pelvis - PO and IV Contrast; Complete Time: 18:31 cp 07/20 16:27 Order name: Urine Dipstick-Ancillary; Complete Time: 16:32 EDMS 07/20 15:44 Order name: IV Saline Lock; Complete Time: 16:12 cp 07/20 15:44 Order name: Labs collected and sent; Complete Time: 16:12 cp 07/20 15:44 Order name: Urine Dipstick-Ancillary (obtain specimen); Complete Time: 16:27 cp Administered Medications: 16:20 Drug: morphine 4 mg Route: IVP; Infused Over: 4 mins; Site: right antecubital; 3 17:00 Follow up: Response: Pain is decreased 3 16:20 Drug: Zofran (Ondansetron) 4 mg Route: IVP; Site: right antecubital; eh3 17:00 Follow up: Response: No adverse reaction eh3 Disposition: 18:09 Co-signature as Attending Physician, Trey Rivera DO I was immediately available onsite ms3 in the emergency department for consultation in the care of the patient. Disposition Summary: 07/20/22 19:14 Discharge Ordered Location: Home cp Problem: new cp Symptoms: have improved cp Condition: Stable cp Diagnosis - Acute pain, not elsewhere classified - rectum cp Followup: cp - With: Festus Butler MD - When: 2 - 3 days - Reason: Recheck today's complaints Discharge Instructions: - Discharge Summary Sheet cp Forms: - Medication Reconciliation Form cp - Thank You Letter cp - Antibiotic Education cp - Prescription Opioid Use cp Prescriptions: - Cipro 500 mg Oral Tablet - take 1 tablet by ORAL route every 12 hours for 10 days; 20 tablet; Refills: 0, cp Product Selection Permitted - Metronidazole 500 mg Oral Tablet - take 1 tablet by ORAL route every 8 hours; 30 tablet; Refills: 0, Product cp Selection Permitted - Anusol-HC 25 mg Rectal Suppository - insert 1 suppository by RECTAL route every 12 hours As needed; 20 suppository; cp Refills: 0, Product Selection Permitted Signatures: Dispatcher [employer] EDMS Marco Herzog PA PA cp Sims, Marcus, DO DO ms3 Farideh Nails, RN RN eh3 Toya Ramos, RN RN kb3
--- NOTE | 2022-07-20 19:14 | ER ---
Nurse's Notes [facility] Name: Myron Dwyer Age: 51 yrs Sex: Male : 1970 Arrival Date: 07/20/2022 Time: 15:15 Bed 20 Private MD: Diagnosis: Acute pain, not elsewhere classified-rectum Presentation: 07/20 15:31 Chief complaint: Patient states: Pt reports rectal pain/pressure, increased with BM x1 kb3 week. Denies N/V/fever/rectal bleeding. Coronavirus screen: Vaccine status: Patient reports receiving the 2nd dose of the covid vaccine. Client denies travel out of the [place] in the last 14 days. Ebola Screen: Patient negative for fever greater than or equal to 101.5 degrees Fahrenheit, and additional compatible Ebola Virus Disease symptoms Patient denies exposure to infectious person. Patient denies travel to an Ebola-affected area in the 21 days before illness onset. No symptoms or risks identified at this time. Initial Sepsis Screen: Does the patient meet any 2 criteria? No. Patient's initial sepsis screen is negative. Does the patient have a suspected source of infection? No. Patient's initial sepsis screen is negative. Risk Assessment: Do you want to hurt yourself or someone else? Patient reports no desire to harm self or others. Onset of symptoms was July 13, 2022. 15:31 Method Of Arrival: Ambulatory 3 15:31 Acuity: WERNER 3 kb3 Triage Assessment: 15:33 General: Appears in no apparent distress. uncomfortable, Behavior is calm, cooperative. kb3 Pain: Complains of pain in Rectal Pain does not radiate. Pain currently is 4 out of 10 on a pain scale. at worst was 10 out of 10 on a pain scale. Quality of pain is described as pressure, Pain began 1 week. GI: Reports constipation, rectal pain Patient currently denies abdominal pain, nausea, rectal bleeding, vomiting. Historical: - Allergies: 15:33 No Known Allergies; kb3 - Home Meds: 15:33 Unable to obtain [Active]; kb3 - PMHx: 15:33 High uric acid; Hypertensive disorder; Hypercholesterolemia; kb3 - PSHx: 15:33 None; kb3 - Immunization history:: Adult Immunizations up to date, Client reports receiving the 2nd dose of the Covid vaccine, Last tetanus immunization: unknown. - Social history:: Smoking status: Patient denies any tobacco usage or history of. Screenin:36 Abuse screen: Denies threats or abuse. Denies injuries from another. Nutritional kb3 screening: No deficits noted. Tuberculosis screening: No symptoms or risk factors identified. Fall Risk None identified. Assessment: 15:30 General: Appears in no apparent distress. uncomfortable, Behavior is calm, cooperative, eh3 appropriate for age. Pain: Complains of pain in rectum. Neuro: Level of Consciousness is awake, alert, obeys commands, Oriented to person, place, time, situation. Cardiovascular: Capillary refill < 3 seconds Patient's skin is warm and dry. Respiratory: Airway is patent Respiratory effort is even, unlabored, Respiratory pattern is regular, symmetrical. GI: Abdomen is round non-distended. : No signs and/or symptoms were reported regarding the genitourinary system. EENT: No signs and/or symptoms were reported regarding the EENT system. Derm: No signs and/or symptoms reported regarding the dermatologic system. Musculoskeletal: No signs and/or symptoms reported regarding the musculoskeletal system. Circulation, motion, and sensation intact. Range of motion: intact in all extremities. 15:36 Reassessment: Patient appears in no apparent distress at this time. No changes from kb3 previously documented assessment. General: see triage note. 16:30 Reassessment: Patient appears in no apparent distress at this time. Patient and/or 3 family updated on plan of care and expected duration. Pain level reassessed. Patient is alert, oriented x 3, equal unlabored respirations, skin warm/dry/pink. 17:30 Reassessment: Patient appears in no apparent distress at this time. Patient and/or 3 family updated on plan of care and expected duration. Pain level reassessed. Patient is alert, oriented x 3, equal unlabored respirations, skin warm/dry/pink. 18:30 Reassessment: Patient appears in no apparent distress at this time. Patient and/or eh3 family updated on plan of care and expected duration. Pain level reassessed. Patient is alert, oriented x 3, equal unlabored respirations, skin warm/dry/pink. Vital Signs: 15:30 BP 149 / 93; Pulse 71; Resp 18; Pulse Ox 99% on R/A; eh3 15:31 BP 149 / 93; Pulse 71; Resp 18; Temp 98; Pulse Ox 99% ; Weight 105.69 kg; Height 5 ft. kb3 5 in. (165.10 cm); Pain 4/10; 16:30 BP 136 / 81; Pulse 55; Resp 18; Pulse Ox 97% on R/A; eh3 17:30 BP 119 / 78; Pulse 60; Resp 18; Pulse Ox 96% on R/A; eh3 18:30 BP 132 / 89; Pulse 59; Resp 18; Pulse Ox 97% on R/A; eh3 15:31 Body Mass Index 38.77 (105.69 kg, 165.10 cm) kb3 ED Course: 15:15 Patient arrived in ED. am2 15:16 Trey Rivera DO is Attending Physician. ms3 15:16 Marco Herzog PA is PHCP. cp 15:25 Marco Herzog PA is PHCP. cp 15:33 Triage completed. kb3 15:33 Arm band placed on right wrist. kb3 15:36 Patient has correct armband on for positive identification. Bed in low position. Warm kb3 blanket given. 15:52 Farideh Nails, GAMAL is Primary Nurse. eh3 16:00 Inserted saline lock: 20 gauge in right antecubital area, using aseptic technique. eh3 Blood collected. 18:11 CT Abd/Pelvis - PO and IV Contrast In Process Unspecified. EDMS 19:11 Festus Butler MD is Referral Physician. cp 19:49 No provider procedures requiring assistance completed. IV discontinued, intact, eh3 bleeding controlled, No redness/swelling at site. Pressure dressing applied. Administered Medications: 16:20 Drug: morphine 4 mg Route: IVP; Infused Over: 4 mins; Site: right antecubital; eh3 17:00 Follow up: Response: Pain is decreased eh3 16:20 Drug: Zofran (Ondansetron) 4 mg Route: IVP; Site: right antecubital; eh3 17:00 Follow up: Response: No adverse reaction eh3 Medication: 15:36 VIS not applicable for this client. kb3 Outcome: 19:14 Discharge ordered by . cp 19:49 Discharged to home ambulatory, with significant other. eh3 19:49 Condition: stable 19:49 Discharge instructions given to patient, family, Instructed on discharge instructions, follow up and referral plans. medication usage, Demonstrated understanding of instructions, follow-up care, medications, Prescriptions given X 3. 19:50 Patient left the ED. eh3 Signatures: Dispatcher [employer] EDMS Marco Herzog PA PA cp Moreno, Amanda 2 Trey Rivera DO DO ms3 Farideh Nails, RN RN eh3 Toya Ramos RN RN kb3
[2022-07-20 20:05] VITALS: TEMP 98
[2022-07-20 20:17] VITALS: BP 132/89; O2SAT 97
== END 2022-07-20 19:50 | disposition home or self-care (01) ==
LOC: ER 15:13
DX: K62.89 Other specified diseases of anus and rectum (principal)
CPT/HCPCS: 36415; 74177; 80053; 81003; 81015; 83690; 85025; 96374; 96375; 99284; J2405; Q9967

== ENCOUNTER 2022-08-25 14:51 | Emergency (ER) | payer SELFPAY ==
--- OUTSIDE RECORDS SUMMARY | 2022-08-25 14:58 | XMS REPORT | Continuity of Care Document ---
:1970 Author Organization [facility] t Address [address] [place] [address] Care Team Providers Name Role Phone Marina Atwood Primary Care Physician [phone] Problems This patient has no known problems. [...] terbinafine 2015-0 No 1% HCl 1 % -12 topical 00:00: cream 00 amoxicillin 2015-0 No 1mg 500 mg 3-12 tablet 00:00: 00 Vital Signs Vital Name [...] Goal Plan of Care Note [code = 18889-1] Goal Plan of Care Note [code = 60184-3] Goal Plan of Care Note [code = 16947-4] Goal Plan of Care Note [code = 31275-1] Goal Plan of Care Note [code = 82226-2] Goal Plan of Care Note [code = 25605-9] Goal Plan of Care Note [code = 39728-5] Goal Plan of Care Note [code = 14350-6] Goal Plan of Care Note [code = 70942-4] Goal Plan of Care Note [code = 49311-8] Goal Plan of Care Note [code = 95635-5] Goal Plan of Care Note [code = 04865-4] Goal Plan of Care Note [code = 38960-5] Goal Plan of Care Note [code = 59751-8] Goal Plan of Care Note [code = 00899-9] Goal Plan of Care Note [code = 07184-9] Goal Plan of Care Note [code = 46430-6] Goal Plan of Care Note [code = 74802-5] Goal Plan of Care Note [code = 48834-7] Goal Plan of Care Note [code = 59938-6] Goal Plan of Care Note [code = 22261-2] Goal Plan of Care Note [code = 81939-0] Goal Plan of Care Note [code = 74702-5] Goal Plan of Care Note [code = 73458-5] Goal Plan of Care Note [code = 57024-9] Goal Plan of Care Note [code = 84013-5] Goal Plan of Care Note [code = 77350-1] Goal Plan of Care Note [code = 24113-6] Goal Plan of Care Note [code = 56665-1] Goal Plan of Care Note [code = 78287-1] Goal Plan of Care Note [code = 62963-7] Goal Plan of Care Note [code = 57966-4] Goal Plan of Care Note [code = 62305-9] Goal Plan of Care Note [code = 99881-9] Goal Plan of Care Note [code = 72527-1] Goal Plan of Care Note [code = 07080-5] Goal Plan of Care Note [code = 94938-8] Goal Plan of Care Note [code = 11780-3] Goal Plan of Care Note [code = 12883-1] Goal Plan of Care Note [code = 70184-8] Goal Plan of Care Note [code = 06605-6] Goal Plan of Care Note [code = 07396-3] Goal Plan of Care Note [code = 68892-2] Goal Plan of Care Note [code = 28466-9] Goal Plan of Care Note [code = 34044-2] Goal Plan of Care Note [code = 32892-0] Goal Plan of Care Note [code = 15670-9] Goal Plan of Care Note [code = 09539-4] Goal Plan of Care Note [code = 63623-8] Goal Plan of Care Note [code = 00944-0] Goal Plan of Care Note [code = 63657-7] Goal Plan of Care Note [code = 18702-4] Goal Plan of Care Note [code = 51128-5] Goal Plan of Care Note [code = 08750-1] Goal Plan of Care Note [code = 90526-5] Goal Plan of Care Note [code = 40721-4] Goal Plan of Care Note [code = 96037-0] Goal Plan of Care Note [code = 42254-5] Goal Plan of Care Note [code = 37592-4] Encounters Start End Encounter Admission Attending Care Care Encounter Source Date/Time Date/Time Type Type Clinicians Facility Department ID 2022-06-19 2022-06-19 Outpatient [facility] Sp 15:01:56 15:01:56 1110 F Singh 2022-06-17 2022-06-17 Outpatient [facility] Sp 16:59:28 16:59:28 1108 F Singh 2022-06-17 2022-06-17 Outpatient [id number] [id number]-[id number] 00:00:00 00:00:00 Visit y724-07v7 230-47a3-8 -6qe2-5r2 [id number] 683m2p19l a4a70c 2022-05-16 2022-05-16 Outpatient [facility] Sp 16:10:30 16:10:30 1007 F Singh 2022-05-16 2022-05-16 Outpatient [id number]- [id number] gg4v7l-h 00:00:00 00:00:00 Visit ccd2-4556 cd2-4556-9 -985a-e7f 85a-e7fd96 [id number] 43h705 2022-05-10 2022-05-10 Outpatient [facility] Sp 11:48:02 11:48:02 1001 F Singh 2022-05-10 2022-05-10 Outpatient [id number]- [id number] 00:00:00 00:00:00 Visit 6922-4dbc 922-4dbc-9 -937b-735 37b-735b06 [id number] e51fcd 2022-02-13 2022-02-13 Outpatient [id number]- [id number] 23aefa-0 00:00:00 00:00:00 Visit 33c6-5a39 7n5-0f76-v -j74j-86x 02b-67w103 [id number] 182afe Results Test Description Test Time Test Comments Results Result Comments Source SARS-CoV-2 (COVID-19) by RT-PCR (HIGH RISK) 2020-08-01 00:00 :00 Test Item Value Reference Range Interpretation Comme nts SARS-CoV-2 INTERPRETATION (test code = 89769) NEGATIVE SOURCE (test code = 58237) NOT SPECIFIED SARS-CoV-2 (COVID-19) by RT-PCR (HIGH RISK)2020-08-01 00:00:00 Test Item Value Reference Range Interpretation Comments SARS-CoV-2 INTERPRETATION (test NEGATIVE code = 04898) SOURCE (test code = 73813) NOT SPECIFIED SARS-CoV-2 (COVID-19) by RT-PCR (HIGH RISK)2020-08-01 00:00:00 Test Item Value Reference Range Interpretation Comments SARS-CoV-2 INTERPRETATION (test NEGATIVE code = 96734) SOURCE (test code = 40994) NOT SPECIFIED SARS-CoV-2 (COVID-19) by RT-PCR (HIGH RISK)2020-08-01 00:00:00 Test Item Value Reference Range Interpretation Comments SARS-CoV-2 INTERPRETATION (test NEGATIVE code = 62411) SOURCE (test code = 36918) NOT SPECIFIED SARS-CoV-2 (COVID-19) by RT-PCR (HIGH RISK)2020-08-01 00:00:00 Test Item Value Reference Range Interpretation Comments SARS-CoV-2 INTERPRETATION (test NEGATIVE code = 71063) SOURCE (test code = 49584) NOT SPECIFIED SARS-CoV-2 (COVID-19) by RT-PCR (HIGH RISK)2020-08-01 00:00:00 Test Item Value Reference Range Interpretation Comments SARS-CoV-2 INTERPRETATION (test NEGATIVE code = 29765) SOURCE (test code = 71916) NOT SPECIFIED SARS-CoV-2 (COVID-19) by RT-PCR (HIGH RISK)2020-08-01 00:00:00 Test Item Value Reference Range Interpretation Comments SARS-CoV-2 INTERPRETATION (test NEGATIVE code = 21033) SOURCE (test code = 31756) NOT SPECIFIED LIPID [id number] 00:00:00 Test Item Value Reference Range Interpretation Comments CHOLESTEROL (test code = 2210) 204 MG/DL TRIGLYCERIDES (test code = 2232) 370 MG/DL HDL CHOLESTEROL (test code = 2220) 36 MG/DL CALC LDL CHOL (test code = 2237) 94 MG/DL RISK RATIO LDL/HDL (test code = 2.61 RATIO 2238) CBC W/AUTO [id number] 00:00:00 Test Item Value Reference Range Interpretation [...] code = 1015) 119 K/UL CBC W/AUTO [id number] 00:00:00 Test Item Value Reference Range Interpretation [...] code = 1015) 119 K/UL CBC W/AUTO [id number] 00:00:00 Test Item Value Reference Range Interpretation [...] (test code = 1015) 119 K/UL HEMOGLOBIN [id number] 00:00:00 Test Item Value Reference Range Interpretation Comments HEMOGLOBIN A1c (test code = 91069) 5.6 % HEMOGLOBIN [id number] 00:00:00 Test Item Value Reference Range Interpretation Comments HEMOGLOBIN A1c (test code = 30435) 5.6 % HEMOGLOBIN [id number] 00:00:00 Test Item Value Reference Range Interpretation Comments HEMOGLOBIN A1c (test code = 94702) 5.6 % HEMOGLOBIN [id number] 00:00:00 Test Item Value Reference Range Interpretation Comments HEMOGLOBIN A1c (test code = 27531) 5.6 % [id number] 00:00:00 Test Item Value Reference Range Interpretation Comments TSH, THIRD GENERATION (test code 2.290 UIU/ML = 2821) [id number] 00:00:00 Test Item Value Reference Range Interpretation Comments TSH, THIRD GENERATION (test code 2.290 UIU/ML = 2821) [id number] 00:00:00 Test Item Value Reference Range Interpretation Comments TSH, THIRD GENERATION (test code 2.290 UIU/ML = 2821) URIC [id number] 00:00:00 Test Item Value Reference Range Interpretation Comments URIC ACID (test code = 2233) 7.7 MG/DL URIC [id number] 00:00:00 Test Item Value Reference Range Interpretation Comments URIC ACID (test code = 2233) 7.7 MG/DL RHEUMATOID FACTOR, [id number] 00:00:00 Test Item Value Reference Range Interpretation Comments RHEUMATOID FACTOR, QUANT (test code <10 IU/ML = 3502) RHEUMATOID FACTOR, [id number] 00:00:00 Test Item Value Reference Range Interpretation Comments RHEUMATOID FACTOR, QUANT (test code <10 IU/ML = 3502) RHEUMATOID FACTOR, [id number] 00:00:00 Test Item Value Reference Range Interpretation Comments RHEUMATOID FACTOR, QUANT (test code <10 IU/ML = 3502) HEMOGLOBIN [id number] 00:00:00 Test Item Value Reference Range Interpretation Comments HEMOGLOBIN A1c (test code = 39439) 5.6 % VITAMIN D, 25 [id number] 00:00:00 Test Item Value Reference Range Interpretation Comments VITAMIN D, 25 OH (test code = 4958) 21 NG/ML VITAMIN D, 25 [id number] 00:00:00 Test Item Value Reference Range Interpretation Comments VITAMIN D, 25 OH (test code = 4958) 21 NG/ML [id number] 00:00:00 Test Item Value Reference Range Interpretation Comments TSH, THIRD GENERATION (test code 2.290 UIU/ML = 2821) [id number] 00:00:00 Test Item Value Reference Range Interpretation Comments TSH, THIRD GENERATION (test code 2.290 UIU/ML = 2821) URIC [id number] 00:00:00 Test Item Value Reference Range Interpretation Comments URIC ACID (test code = 2233) 7.7 MG/DL COMPREHENSIVE METABOLIC [id number] 00:00:00 Test Item Value Reference Range Interpretation Comments GLUCOSE (test code = 2217) 86 MG/DL BUN (test code = 2208) 15 MG/DL CREATININE (test code = 2214) 0.83 MG/DL eGFR AMER. (test code 121 ML/MIN/1.73 = 98220) eGFR NON- AMER. (test 105 ML/MIN/1.73 code = 05950) CALC BUN/CREAT (test code = 18 RATIO [...] code = 2219) 24 U/L RHEUMATOID FACTOR, [id number] 00:00:00 Test Item Value Reference Range Interpretation Comments RHEUMATOID FACTOR, QUANT (test code <10 IU/ML = 3502) COMPREHENSIVE METABOLIC [id number] 00:00:00 Test Item Value Reference Range Interpretation Comments GLUCOSE (test code = 2217) 86 MG/DL BUN (test code = 2208) 15 MG/DL CREATININE (test code = 2214) 0.83 MG/DL eGFR AMER. (test code 121 ML/MIN/1.73 = 13713) eGFR NON- AMER. (test 105 ML/MIN/1.73 code = 01111) CALC BUN/CREAT (test code = 18 RATIO [...] (test code = 2219) 24 U/L LIPID [id number] 00:00:00 Test Item Value Reference Range Interpretation Comments CHOLESTEROL (test code = 2210) 204 MG/DL TRIGLYCERIDES (test code = 2232) 370 MG/DL HDL CHOLESTEROL (test code = 2220) 36 MG/DL CALC LDL CHOL (test code = 2237) 94 MG/DL RISK RATIO LDL/HDL (test code = 2.61 RATIO 2238) LIPID [id number] 00:00:00 Test Item Value Reference Range Interpretation Comments CHOLESTEROL (test code = 2210) 204 MG/DL TRIGLYCERIDES (test code = 2232) 370 MG/DL HDL CHOLESTEROL (test code = 2220) 36 MG/DL CALC LDL CHOL (test code = 2237) 94 MG/DL RISK RATIO LDL/HDL (test code = 2.61 RATIO 2238) CBC W/AUTO [id number] 00:00:00 Test Item Value Reference Range Interpretation [...] code = 1015) 119 K/UL CBC W/AUTO [id number] 00:00:00 Test Item Value Reference Range Interpretation [...] code = 1015) 119 K/UL CBC W/AUTO [id number] 00:00:00 Test Item Value Reference Range Interpretation [...] (test code = 1015) 119 K/UL HEMOGLOBIN [id number] 00:00:00 Test Item Value Reference Range Interpretation Comments HEMOGLOBIN A1c (test code = 36992) 5.6 % HEMOGLOBIN [id number] 00:00:00 Test Item Value Reference Range Interpretation Comments HEMOGLOBIN A1c (test code = 36191) 5.6 % HEMOGLOBIN [id number] 00:00:00 Test Item Value Reference Range Interpretation Comments HEMOGLOBIN A1c (test code = 73640) 5.6 % [id number] 00:00:00 Test Item Value Reference Range Interpretation Comments TSH, THIRD GENERATION (test code 2.290 UIU/ML = 2821) RHEUMATOID FACTOR, [id number] 00:00:00 Test Item Value Reference Range Interpretation Comments RHEUMATOID FACTOR, QUANT (test code <10 IU/ML = 3502) [id number] 00:00:00 Test Item Value Reference Range Interpretation Comments TSH, THIRD GENERATION (test code 2.290 UIU/ML = 2821) [id number] 00:00:00 Test Item Value Reference Range Interpretation Comments TSH, THIRD GENERATION (test code 2.290 UIU/ML = 2821) URIC [id number] 00:00:00 Test Item Value Reference Range Interpretation Comments URIC ACID (test code = 2233) 7.7 MG/DL URIC [id number] 00:00:00 Test Item Value Reference Range Interpretation Comments URIC ACID (test code = 2233) 7.7 MG/DL RHEUMATOID FACTOR, [id number] 00:00:00 Test Item Value Reference Range Interpretation Comments RHEUMATOID FACTOR, QUANT (test code <10 IU/ML = 3502) RHEUMATOID FACTOR, [id number] 00:00:00 Test Item Value Reference Range Interpretation Comments RHEUMATOID FACTOR, QUANT (test code <10 IU/ML = 3502) RHEUMATOID FACTOR, [id number] 00:00:00 Test Item Value Reference Range Interpretation Comments RHEUMATOID FACTOR, QUANT (test code <10 IU/ML = 3502) VITAMIN D, 25 [id number] 00:00:00 Test Item Value Reference Range Interpretation Comments VITAMIN D, 25 OH (test code = 4958) 21 NG/ML VITAMIN D, 25 [id number] 00:00:00 Test Item Value Reference Range Interpretation Comments VITAMIN D, 25 OH (test code = 4958) 21 NG/ML VITAMIN D, 25 [id number] 00:00:00 Test Item Value Reference Range Interpretation Comments VITAMIN D, 25 OH (test code = 4958) 21 NG/ML COMPREHENSIVE METABOLIC [id number] 00:00:00 Test Item Value Reference Range Interpretation Comments GLUCOSE (test code = 2217) 86 MG/DL BUN (test code = 2208) 15 MG/DL CREATININE (test code = 2214) 0.83 MG/DL eGFR AMER. (test code 121 ML/MIN/1.73 = 99319) eGFR NON- AMER. (test 105 ML/MIN/1.73 code = 02057) CALC BUN/CREAT (test code = 18 RATIO [...] code = 2219) 24 U/L COMPREHENSIVE METABOLIC [id number] 00:00:00 Test Item Value Reference Range Interpretation Comments GLUCOSE (test code = 2217) 86 MG/DL BUN (test code = 2208) 15 MG/DL CREATININE (test code = 2214) 0.83 MG/DL eGFR AMER. (test code 121 ML/MIN/1.73 = 80881) eGFR NON- AMER. (test 105 ML/MIN/1.73 code = 37051) CALC BUN/CREAT (test code = 18 RATIO [...] (test code = 2219) 24 U/L LIPID [id number] 00:00:00 Test Item Value Reference Range Interpretation Comments CHOLESTEROL (test code = 2210) 204 MG/DL TRIGLYCERIDES (test code = 2232) 370 MG/DL HDL CHOLESTEROL (test code = 2220) 36 MG/DL CALC LDL CHOL (test code = 2237) 94 MG/DL RISK RATIO LDL/HDL (test code = 2.61 RATIO 2238) LIPID [id number] 00:00:00 Test Item Value Reference Range Interpretation Comments CHOLESTEROL (test code = 2210) 204 MG/DL TRIGLYCERIDES (test code = 2232) 370 MG/DL HDL CHOLESTEROL (test code = 2220) 36 MG/DL CALC LDL CHOL (test code = 2237) 94 MG/DL RISK RATIO LDL/HDL (test code = 2.61 RATIO 2238) CBC W/AUTO [id number] 00:00:00 Test Item Value Reference Range Interpretation [...] code = 1015) 119 K/UL CBC W/AUTO [id number] 00:00:00 Test Item Value Reference Range Interpretation [...] code = 1015) 119 K/UL CBC W/AUTO [id number] 00:00:00 Test Item Value Reference Range Interpretation [...] (test code = 1015) 119 K/UL HEMOGLOBIN [id number] 00:00:00 Test Item Value Reference Range Interpretation Comments HEMOGLOBIN A1c (test code = 95153) 5.6 % HEMOGLOBIN [id number] 00:00:00 Test Item Value Reference Range Interpretation Comments HEMOGLOBIN A1c (test code = 60574) 5.6 % HEMOGLOBIN [id number] 00:00:00 Test Item Value Reference Range Interpretation Comments HEMOGLOBIN A1c (test code = 84114) 5.6 % [id number] 00:00:00 Test Item Value Reference Range Interpretation Comments TSH, THIRD GENERATION (test code 2.290 UIU/ML = 2821) [id number] 00:00:00 Test Item Value Reference Range Interpretation Comments TSH, THIRD GENERATION (test code 2.290 UIU/ML = 2821) [id number] 00:00:00 Test Item Value Reference Range Interpretation Comments TSH, THIRD GENERATION (test code 2.290 UIU/ML = 2821) URIC [id number] 00:00:00 Test Item Value Reference Range Interpretation Comments URIC ACID (test code = 2233) 7.7 MG/DL URIC [id number] 00:00:00 Test Item Value Reference Range Interpretation Comments URIC ACID (test code = 2233) 7.7 MG/DL RHEUMATOID FACTOR, [id number] 00:00:00 Test Item Value Reference Range Interpretation Comments RHEUMATOID FACTOR, QUANT (test code <10 IU/ML = 3502) RHEUMATOID FACTOR, [id number] 00:00:00 Test Item Value Reference Range Interpretation Comments RHEUMATOID FACTOR, QUANT (test code <10 IU/ML = 3502) RHEUMATOID FACTOR, [id number] 00:00:00 Test Item Value Reference Range Interpretation Comments RHEUMATOID FACTOR, QUANT (test code <10 IU/ML = 3502) VITAMIN D, 25 [id number] 00:00:00 Test Item Value Reference Range Interpretation Comments VITAMIN D, 25 OH (test code = 4958) 21 NG/ML VITAMIN D, 25 [id number] 00:00:00 Test Item Value Reference Range Interpretation Comments VITAMIN D, 25 OH (test code = 4958) 21 NG/ML COMPREHENSIVE METABOLIC [id number] 00:00:00 Test Item Value Reference Range Interpretation Comments GLUCOSE (test code = 2217) 86 MG/DL BUN (test code = 2208) 15 MG/DL CREATININE (test code = 2214) 0.83 MG/DL eGFR AMER. (test code 121 ML/MIN/1.73 = 85602) eGFR NON- AMER. (test 105 ML/MIN/1.73 code = 11547) CALC BUN/CREAT (test code = 18 RATIO [...] (test code = 2219) 24 U/L LIPID [id number] 00:00:00 Test Item Value Reference Range Interpretation Comments CHOLESTEROL (test code = 2210) 204 MG/DL TRIGLYCERIDES (test code = 2232) 370 MG/DL HDL CHOLESTEROL (test code = 2220) 36 MG/DL CALC LDL CHOL (test code = 2237) 94 MG/DL RISK RATIO LDL/HDL (test code = 2.61 RATIO 2238) CBC W/AUTO [id number] 00:00:00 Test Item Value Reference Range Interpretation [...] code = 1015) 119 K/UL CBC W/AUTO [id number] 00:00:00 Test Item Value Reference Range Interpretation [...] code = 1015) 119 K/UL COMPREHENSIVE METABOLIC [id number] 00:00:00 Test Item Value Reference Range Interpretation Comments GLUCOSE (test code = 2217) 86 MG/DL BUN (test code = 2208) 15 MG/DL CREATININE (test code = 2214) 0.83 MG/DL eGFR AMER. (test code 121 ML/MIN/1.73 = 91864) eGFR NON- AMER. (test 105 ML/MIN/1.73 code = 73658) CALC BUN/CREAT (test code = 18 RATIO 2235) SODIUM (test code = 2231) 140 MEQ/L POTASSIUM (test code = 2228) 4.6 MEQ/L CHLORIDE (test code = 2215) 101 MEQ/L CARBON DIOXIDE (test code = 28 MEQ/L 2206) CALCIUM (test code = 2209) 9.9 MG/DL [...] code = 2219) 24 U/L COMPREHENSIVE METABOLIC [id number] 00:00:00 Test Item Value Reference Range Interpretation Comments GLUCOSE (test code = 2217) 86 MG/DL BUN (test code = 2208) 15 MG/DL CREATININE (test code = 2214) 0.83 MG/DL eGFR AMER. (test code 121 ML/MIN/1.73 = 29081) eGFR NON- AMER. (test 105 ML/MIN/1.73 code = 59415) CALC BUN/CREAT (test code = 18 RATIO [...] (test code = 2219) 24 U/L LIPID [id number] 00:00:00 Test Item Value Reference Range Interpretation Comments CHOLESTEROL (test code = 2210) 204 MG/DL TRIGLYCERIDES (test code = 2232) 370 MG/DL HDL CHOLESTEROL (test code = 2220) 36 MG/DL CALC LDL CHOL (test code = 2237) 94 MG/DL RISK RATIO LDL/HDL (test code = 2.61 RATIO 2238)
[2022-08-25] MEDS ORDERED: KETOROLAC 30 MG/ML INJ ONE (15:43)
[2022-08-25] MEDS ORDERED: NA CHLORIDE 0.9% 1,000 ML ONE (15:43)
[2022-08-25 15:56] LABS: Absolute Lymphocytes (CBC) 1.4 K/uL (0.7-4.9); Hematocrit 39.6 % (39.6-49.0); MCV 81.8 fL (80-100); RBC Red Blood Cell Count 4.84 M/uL (4.33-5.43)
[2022-08-25 16:18] LABS: Albumin 3.9 g/dL (3.4-5.0); Bilirubin Total 0.2 mg/dL (0.2-1.0); Potassium 4.1 mmol/L (3.5-5.1)
[2022-08-25 16:47] LABS: Urine Blood Negative (Negative); Urine Glucose Negative (Negative); Urine Protein Negative (Negative)
[2022-08-25 16:57] LABS: Urine Bacteria None Seen /HPF (<20); Urine RBC <5 /HPF (None Seen)
--- NOTE | 2022-08-25 18:22 | RAD REPORT ---
EXAM DESCRIPTION: CTAbdomen Pelvis W Contrast - 08/25/2022 6:12 pm CLINICAL HISTORY: Abdominal pain. rectal pain, give oral contrast COMPARISON: Abdomen Pelvis W Contrast dated 07/20/2022 TECHNIQUE: Biphasic CT imaging of the abdomen and pelvis was performed with 100 ml non-ionic IV cont rast. All CT scans are performed using dose optimization technique as appropriate and may include automated exposure control or mA/KV adjustment according to patient size. FINDINGS: The lung bases are clear. The liver, spleen, pancreas, adrenal glands and kidneys are within normal limits. 19 mm cyst superior pole right kidney. No bowel obstruction, free air, free fluid or abscess. The appendix is normal. No evidence of signi ficant lymphadenopathy. Small bilateral inguinal hernias containing fat. No suspicious bony findings. IMPRESSION: No acute intra-abdominal or pelvic finding.
--- NOTE | 2022-08-25 19:05 | EDPHYS ---
Physician Documentation [facility] Name: Myron Dwyer Age: 52 yrs Sex: Male : 1970 Arrival Date: 08/25/2022 Time: 14:55 Bed 25 Private MD: ED Physician Christian Loving HPI: 08/25 15:40 This 52 yrs old Male presents to ER via Ambulatory with complaints of Rectal cp Pain. 15:40 The patient presents to the emergency department with pain in the rectal area, that is cp moderate. Onset: The symptoms/episode began/occurred for past 1-2 months. 15:40 Context: the patient has no known special context relating to the rectal area cp complaint(s). Associate signs and symptoms: Pertinent negatives: abdominal pain, constipation, diarrhea, fever, lower GI bleeding. Patient returns to ED after being seen last month by me for complaints of rectal pain. Patient reports symptoms improved with prescribed antibiotics and suppositories but since completing meds, pain has returned. Patient admits to no f/u after previous ED visit. Historical: - PMHx: 15:21 High uric acid; Hypercholesterolemia; Hypertensive disorder; jh5 - Immunization history:: Adult Immunizations up to date. - Social history:: Smoking status: Patient denies any tobacco usage or history of. ROS: 15:45 Constitutional: Negative for body aches, chills, fever, poor PO intake. cp 15:45 Eyes: Negative for injury, pain, redness, and discharge. cp 15:45 ENT: Negative for drainage from ear(s), ear pain, sore throat, difficulty swallowing, difficulty handling secretions. 15:45 Cardiovascular: Negative for chest pain, edema, palpitations. 15:45 Respiratory: Negative for cough, shortness of breath, wheezing. 15:45 Abdomen/GI: Positive for rectal pain, Negative for abdominal pain, vomiting, diarrhea, constipation, black/tarry stool, rectal bleeding, bowel incontinence. 15:45 Back: Negative for pain at rest, pain with movement. 15:45 : Negative for urinary symptoms, testicular pain 15:45 Skin: Negative for rash. 15:45 Neuro: Negative for altered mental status, dizziness, headache, syncope, weakness. 15:45 All other systems are negative. Exam: 15:45 Head/Face: Normocephalic, atraumatic. cp 15:45 Constitutional: The patient appears in no acute distress, alert, awake, non-diaphoretic, non-toxic, well developed, well nourished, obese. 15:45 Eyes: Periorbital structures: appear normal, Conjunctiva: normal, no exudate, no cp injection, Sclera: no appreciated abnormality, Lids and lashes: appear normal, bilaterally. 15:45 ENT: External ear(s): are unremarkable, Nose: is normal, Mouth: Lips: moist, Oral mucosa: moist, Posterior pharynx: Airway: no evidence of obstruction, patent. 15:45 Chest/axilla: Inspection: normal. 15:45 Cardiovascular: Rate: bradycardic, Rhythm: regular. 15:45 Respiratory: the patient does not display signs of respiratory distress, Respirations: normal, no use of accessory muscles, no retractions, labored breathing, is not present. 15:45 Abdomen/GI: Inspection: obese Bowel sounds: active, all quadrants, Palpation: abdomen is soft and non-tender, in all quadrants. 15:45 Back: pain, is absent, ROM is normal. 15:45 : Rectal exam: Rectal tone: normal, hemorrhoid(s), are not appreciated, marked tenderness on palpation and mild erythema and swelling of rectum. 15:45 Skin: lesion(s), are not present, of rectum, no rash present. of rectum. Vital Signs: 15:11 BP 168 / 90; Pulse 57; Resp 18; Temp 97.1; Pulse Ox 97% ; Weight 108.86 kg; Height 5 5 ft. 8 in. (172.72 cm); Pain 8/10; 16:00 BP 130 / 64; Pulse 52; Resp 16; Pulse Ox 97% ; mb9 17:18 BP 102 / 62; Pulse 54; Resp 14; Pulse Ox 100% on R/A; mb9 18:48 BP 106 / 62; Pulse 52; Resp 16; Pulse Ox 97% ; mb9 15:11 Body Mass Index 36.49 (108.86 kg, 172.72 cm) 5 MDM: 15:08 Patient medically screened. cp 16:00 Differential diagnosis: hemorrhoids, fissure, abscess, pilonidal cyst, condyloma. cp 19:03 Data reviewed: vital signs, nurses notes, lab test result(s), radiologic studies, CT cp scan. 19:03 I considered the following discharge prescriptions or medication management in the emergency department Medications were administered in the Emergency Department. See MAR. Historians other than the Patient: Spouse/Significant Other: . Care significantly affected by the following chronic conditions: Hypertension. Counseling: I had a detailed discussion with the patient and/or guardian regarding: the historical points, exam findings, and any diagnostic results supporting the discharge/admit diagnosis, lab results, radiology results, the need for outpatient follow up, for definitive care, a hog cooler, to return to the emergency department if symptoms worsen or persist or if there are any questions or concerns that arise at home. Response to treatment: the patient's symptoms have markedly improved after treatment, and as a result, I will discharge patient. 08/25 15:36 Order name: CBC with Diff; Complete Time: 16:58 cp 08/25 17:06 Interpretation: Normal except: HGB 13.4; PLT 97. cp 08/25 15:36 Order name: CMP; Complete Time: 16:58 cp 08/25 17:06 Interpretation: Reviewed. cp 08/25 15:36 Order name: Lipase; Complete Time: 16:58 cp 08/25 15:36 Order name: Urine Microscopic Only; Complete Time: 16:58 cp 08/25 15:36 Order name: CT Abd/Pelvis - PO and IV Contrast; Complete Time: 18:33 cp 08/25 16:48 Order name: Urine Dipstick-Ancillary; Complete Time: 16:58 EDMS 08/25 15:36 Order name: IV Saline Lock; Complete Time: 15:51 cp 08/25 15:36 Order name: Labs collected and sent; Complete Time: 15:51 cp 08/25 15:36 Order name: Urine Dipstick-Ancillary (obtain specimen); Complete Time: 16:55 cp Administered Medications: 15:51 Drug: NS 0.9% 1000 ml Route: IV; Rate: 1 bolus; Site: left antecubital; mb9 15:51 Drug: Ketorolac 30 mg Route: IVP; Site: left antecubital; mb9 16:12 Follow up: Response: No adverse reaction mb9 Disposition: 08/26 16:59 Co-signature as Attending Physician, Christian Loving MD I reviewed the patient's care rt provided by the Advanced Practice Provider and agree with the diagnosis and treatment plan. Disposition Summary: 08/25/22 19:04 Discharge Ordered Location: Home cp Problem: an ongoing problem cp Symptoms: have improved cp Condition: Stable cp Diagnosis - Acute pain, not elsewhere classified - rectum cp Followup: cp - With: Festus Butler MD - When: 2 - 3 days - Reason: Recheck today's complaints Discharge Instructions: - Discharge Summary Sheet cp Forms: - Medication Reconciliation Form cp - Thank You Letter cp - Antibiotic Education cp - Prescription Opioid Use cp Prescriptions: - Ibuprofen 800 mg Oral Tablet - take 1 tablet by ORAL route every 8 hours As needed take with food; 30 tablet; cp Refills: 0, Product Selection Permitted - Anusol-HC 25 mg Rectal Suppository - insert 1 suppository by RECTAL route every 12 hours As needed; 20 suppository; cp Refills: 0, Product Selection Permitted Signatures: Dispatcher [employer] EDMS Marco Herzog PA PA cp Diana Prince RN RN jh5 Negrita Louis RN RN mb9 Christian Loving MD MD rt Corrections: (The following items were deleted from the chart) 08/25 17:06 16:58 Normal except: HGB 13.4. cp cp
--- NOTE | 2022-08-25 19:05 | ER ---
Nurse's Notes [facility] Name: Myron Dwyer Age: 52 yrs Sex: Male : 1970 Arrival Date: 08/25/2022 Time: 14:55 Bed 25 Private MD: Diagnosis: Acute pain, not elsewhere classified-rectum Presentation: 08/25 15:11 Chief complaint: Patient states: seen here a month ago; rectal pain/ unable to sit, 5 walk due to pain radiating to testicles. Antibiotics and pain medicine arent helping; denies bleeding. Coronavirus screen: Vaccine status: Patient reports receiving the 2nd dose of the covid vaccine. Client denies travel out of the [place] in the last 14 days. Ebola Screen: Patient negative for fever greater than or equal to 101.5 degrees Fahrenheit, and additional compatible Ebola Virus Disease symptoms Patient denies exposure to infectious person. Patient denies travel to an Ebola-affected area in the 21 days before illness onset. Initial Sepsis Screen: Does the patient meet any 2 criteria? No. Patient's initial sepsis screen is negative. Does the patient have a suspected source of infection? No. Patient's initial sepsis screen is negative. Risk Assessment: Do you want to hurt yourself or someone else? Patient reports no desire to harm self or others. 15:11 Method Of Arrival: Ambulatory [facility] 15:11 Acuity: WERNER 3 [facility] Triage Assessment: 15:21 General: Appears in no apparent distress. Behavior is cooperative, appropriate for age. [facility] Pain: Denies pain. Complains of pain in rectum. Historical: - PMHx: 15:21 High uric acid; Hypercholesterolemia; Hypertensive disorder; [facility] - Immunization history:: Adult Immunizations up to date. - Social history:: Smoking status: Patient denies any tobacco usage or history of. Screenin:54 [facility] ED Fall Risk Assessment (Adult) History of falling in the last 3 months, mb9 including since admission No falls in past 3 months (0 pts) Confusion or Disorientation No (0 pts) Intoxicated or Sedated No (0 pts) Impaired Gait No (0 pts) Mobility Assist Device Used No (0 pt) Altered Elimination No (0 pt) Score/Fall Risk Level 0 - 2 = Low Risk Oriented to surroundings, Maintained a safe environment. Abuse screen: Denies threats or abuse. Nutritional screening: No deficits noted. Tuberculosis screening: No symptoms or risk factors identified. Assessment: 15:10 General: Appears uncomfortable, Behavior is calm, cooperative. mb9 15:10 Pain: Complains of pain in rectal Pain radiates to testicles Pain currently is 10 out mb9 of 10 on a pain scale. Neuro: Vieyra Agitation-Sedation Scale (RASS): 0 - Alert and Calm Level of Consciousness is awake, alert, obeys commands, Oriented to person, place, time, situation, Appropriate for age. Cardiovascular: Capillary refill < 3 seconds is brisk Patient's skin is warm and dry. Respiratory: Airway is patent Respiratory effort is even, unlabored, Respiratory pattern is regular, symmetrical, Breath sounds are clear bilaterally. GI: Abdomen is round non-distended, Bowel sounds present X 4 quads. Abd is soft and non tender X 4 quads. Patient currently denies rectal bleeding. : No signs and/or symptoms were reported regarding the genitourinary system. EENT: No signs and/or symptoms were reported regarding the EENT system. Derm: Skin is pink, warm \T\ dry. Musculoskeletal: Range of motion: intact in all extremities. 15:57 Reassessment: pt finished oral contrast. CT notified. mb9 17:18 Reassessment: No changes from previously documented assessment. Patient and/or family mb9 updated on plan of care and expected duration. Pain level reassessed. Patient is alert, oriented x 3, equal unlabored respirations, skin warm/dry/pink. 18:11 Reassessment: pt taken to CT via wheelchair. mb9 18:47 Reassessment: No changes from previously documented assessment. Patient and/or family mb9 updated on plan of care and expected duration. Pain level reassessed. Patient is alert, oriented x 3, equal unlabored respirations, skin warm/dry/pink. Patient states symptoms have improved. Vital Signs: 15:11 BP 168 / 90; Pulse 57; Resp 18; Temp 97.1; Pulse Ox 97% ; Weight 108.86 kg; Height 5 jh5 ft. 8 in. (172.72 cm); Pain 8/10; 16:00 BP 130 / 64; Pulse 52; Resp 16; Pulse Ox 97% ; mb9 17:18 BP 102 / 62; Pulse 54; Resp 14; Pulse Ox 100% on R/A; mb9 18:48 BP 106 / 62; Pulse 52; Resp 16; Pulse Ox 97% ; mb9 15:11 Body Mass Index 36.49 (108.86 kg, 172.72 cm) [facility] ED Course: 14:55 Patient arrived in ED. am2 14:59 Marco Herzog PA is PHCP. cp 14:59 Christian Loving MD is Attending Physician. cp 15:01 Negrita Louis, RN is Primary Nurse. mb9 15:01 Arm band placed on. mb9 15:18 Triage completed. 5 15:35 No provider procedures requiring assistance completed. Inserted saline lock: 20 gauge mb9 in left antecubital area, using aseptic technique. Blood collected. 15:51 CBC with Diff Sent. mb9 15:51 CMP Sent. mb9 15:51 Lipase Sent. mb9 16:55 Urine Microscopic Only Sent. mb9 18:14 CT Abd/Pelvis - PO and IV Contrast In Process Unspecified. EDMS 19:03 Festus Butler MD is Referral Physician. cp 19:15 IV discontinued, intact, bleeding controlled, No redness/swelling at site. Pressure mb9 dressing applied. Administered Medications: 15:51 Drug: NS 0.9% 1000 ml Route: IV; Rate: 1 bolus; Site: left antecubital; mb9 15:51 Drug: Ketorolac 30 mg Route: IVP; Site: left antecubital; mb9 16:12 Follow up: Response: No adverse reaction mb9 Medication: 18:48 VIS not applicable for this client. mb9 Outcome: 19:04 Discharge ordered by . cp 19:15 Discharged to home ambulatory. mb9 19:15 Condition: stable 19:15 Discharge instructions given to patient, Instructed on discharge instructions, follow up and referral plans. Demonstrated understanding of instructions, follow-up care, medications, Prescriptions given X 2. 19:15 Patient left the ED. mb9 Signatures: Dispatcher [employer] EDRI Marco Herzog PA PA cp Citlali Early am2 Diana Prince RN RN [facility] Negrita Louis, RN RN mb9 Corrections: (The following items were deleted from the chart) 16:07 16:00 BP 162 / 87; Pulse 52bpm; Resp 16bpm; Pulse Ox 97%; mb9 mb9
[2022-08-25 20:19] VITALS: BP 106/62; O2SAT 97
== END 2022-08-25 19:15 | disposition home or self-care (01) ==
LOC: ER 14:51
DX: K62.89 Other specified diseases of anus and rectum (principal)
CPT/HCPCS: 36415; 74177; 80053; 81003; 81015; 83690; 85025; 96374; 99284; J7030; Q9967